=== PATIENT | female | born 1950 | race African-American/Black ===

== ENCOUNTER 2019-09-02 03:13 | Inpatient (IN) | payer MEDICARE ==
[2019-09-02] MEDS ORDERED: PROPOFOL 1,000 MG/100 ML INFUS..BTL IV PRN (03:18)
[2019-09-02 03:49] LABS: ARTERIAL BLOOD BASE EXCESS -11.1 mmol/L; ARTERIAL BLOOD H2CO3 1.76 mmol/L (1.05-1.35); ARTERIAL BLOOD HCO3 18.7 mmol/L (20-24); ARTERIAL BLOOD O2 SATURATION 91.6 % (94-98); ARTERIAL BLOOD PCO2 58.6 mmHg (35-45); ARTERIAL BLOOD PO2 80.8 mmHg (80-100); ARTERIAL BLOOD TOTAL CO2 20.5 mmol/L (21-25)
[2019-09-02 03:53] LABS: ARTERIAL BLOOD FIO2 60%; ARTERIAL BLOOD PH 7.12 (7.35-7.45)
[2019-09-02 03:59] LABS: INTERNATIONAL RATION (INR) 1.07
[2019-09-02 04:09] LABS: ABSOLUTE EOSINOPHILS # (AUTO) 0.2 10^3/uL (0.0-0.6); ABSOLUTE MONOCYTES (AUTO) 0.5 10^3/uL (0.1-1.4); ABSOLUTE NEUT (AUTO) 8.9 10^3/uL (1.7-8.2); BASOPHILS % (AUTO) 0.4 % (0-2); EOSINOPHILS % (AUTO) 1.2 % (0-6); HEMATOCRIT 38.2 % (36.0-47.0); HEMOGLOBIN 12.5 g/dL (12.0-15.5); LYMPHOCYTES % (AUTO) 23.9 % (13-45); MEAN CORPUSCULAR HEMOGLOBIN 26.9 pg (27.0-33.4); MEAN CORPUSCULAR HGB CONC 32.7 g/dL (32.0-36.0); MEAN CORPUSCULAR VOLUME 82 fl (80-97); MONOCYTES % (AUTO) 3.8 % (3-13); PLATELET COUNT 212 10^3/uL (150-450); RED BLOOD COUNT 4.64 10^6/uL (3.72-5.28); RED CELL DISTRIBUTION WIDTH 17.5 % (11.5-14.0); SEGMENTED NEUTROPHILS % (AUTO) 70.7 % (42-78); TOTAL CELLS COUNTED % (AUTO) 100 %; WHITE BLOOD COUNT 12.6 10^3/uL (4.0-10.5)
--- NOTE | 2019-09-02 04:09 | ER Document Report ---
Entered by NANCY AGARWAL SCRIBE 09/02/19 0321 Acting as scribe for:JACINTO GAINES IV, MD ED Respiratory Problem - General Stated Complaint: UNRESPONSIVE Mode of Arrival: Medic Information source: Emergency Med Personnel Notes: This 68 year old female patient brought in by EMS presents to the ED today with complaints of respiratory arrest and unresponsiveness. EMS reports that they found the patient on the front porch "huffing and puffing" and diaphoretic with clammy skin. EMS states that once they got the patient into the truck, she may have reported a history of COPD and asthma, but note that they couldn't get a clear history due to her dyspnea. They state that she quickly became altered and then went into respiratory failure. They report initially trying to administer a nebulizer treatment with no improvement in respiratory status so they placed her on CPAP. Patient was eventually intubated infield with a 6.5 ETT tube placed at 23 cm at the teeth, O2 sats 100% with bagging. - Related Data Allergies/Adverse Reactions: Unable to Assess Allergy (Verified 09/02/19 04:55) Past Medical History - General Cannot obtain history due to: Intubated - Social History Smoking Status: Unknown if Ever Smoked Family History: Reviewed & Not Pertinent Review of Systems - Review of Systems -: Yes ROS unobtainable due to patient's medical condition Physical Exam - Vital signs Vitals: Pulse Ox 93 09/02/19 03:16 - General General appearance: Unresponsive, Other - Unresponsive to painful stimuli. Intubated - HEENT Head: Normocephalic, Atraumatic Eyes: Normal Pupils: PERRL - Respiratory Respiratory status: Other - Intubated Chest status: Nontender Breath sounds: Other - Clear breath sounds bilaterally with bagging; prolonged expiratory phase appreciated Chest palpation: Normal - Cardiovascular Rhythm: Regular Heart sounds: Normal auscultation Murmur: No Friction rub: No Gallop: None auscultated - Abdominal Inspection: Normal Distension: No distension Bowel sounds: Normal Tenderness: Nontender - Abdomen soft Organomegaly: No organomegaly - Back Back: Normal, Nontender - Extremities General upper extremity: Normal inspection General lower extremity: Normal inspection - Neurological Neuro grossly intact: Yes - Psychological Associated symptoms: Other - Unresponsive - Skin Skin Temperature: Warm Skin Moisture: Dry Skin Color: Normal Course - Vital Signs Vital signs: Temp Pulse Resp BP Pulse Ox 20 137/67 H 99 09/02/19 05:36 09/02/19 05:36 09/02/19 05:36 - Laboratory Result Diagrams: 09/02/19 03:05 09/02/19 03:05 Laboratory results interpreted by me: 09/02/19 09/02/19 09/02/19 03:05 03:05 03:05 WBC 12.6 H MCH 26.9 L RDW 17.5 H Absolute Neuts (auto) 8.9 H D-Dimer Carbonic Acid ABG pH ABG pCO2 ABG HCO3 ABG Total CO2 ABG O2 Saturation Chloride 110 H Carbon Dioxide 20 L BUN 22 H Creatinine 1.50 H Est GFR ( Amer) 42 L Est GFR (MDRD) Non-Af 35 L Glucose 215 H POC Glucose Lactic Acid Calcium 8.3 L Phosphorus Magnesium AST 90 H ALT 47 H C-Reactive Protein NT-Pro-B Natriuret Pep 3220 H 09/02/19 09/02/19 09/02/19 03:05 03:05 03:05 WBC MCH RDW Absolute Neuts (auto) D-Dimer 1.76 H Carbonic Acid ABG pH ABG pCO2 ABG HCO3 ABG Total CO2 ABG O2 Saturation Chloride Carbon Dioxide BUN Creatinine Est GFR ( Amer) Est GFR (MDRD) Non-Af Glucose POC Glucose Lactic Acid Calcium Phosphorus 8.3 H Magnesium 3.2 H AST ALT C-Reactive Protein 14.2 H NT-Pro-B Natriuret Pep 09/02/19 09/02/19 09/02/19 03:20 03:20 04:04 WBC MCH RDW Absolute Neuts (auto) D-Dimer Carbonic Acid 1.76 H ABG pH 7.12 L* ABG pCO2 58.6 H ABG HCO3 18.7 L ABG Total CO2 20.5 L ABG O2 Saturation 91.6 L Chloride Carbon Dioxide BUN Creatinine Est GFR ( Amer) Est GFR (MDRD) Non-Af Glucose POC Glucose 180 H Lactic Acid 3.2 H Calcium Phosphorus Magnesium AST ALT C-Reactive Protein NT-Pro-B Natriuret Pep - Diagnostic Test Radiology reviewed: Reports reviewed - EKG Interpretation by Me Additional EKG results interpreted by me: 09/02/19 04:29 EKG obtained on 09/02/2019 at 0417 hrs. was interpreted by this MD. Findings: No rmal sinus rhythm, normal axis, P waves proceed QRS complexes, QRS complexes appear narrow, there are occasional PVCs. QTC is 491, there are no obvious ST segment patterns of elevation or depression to suggest acute myocardial ischemia or infarction. Impression normal sinus rhythm with prolonged QT interval and nonspecific ST segments. - Consults CRISTOPHER QUISPE NP, PRODUCT CONTROL AND LOGISTICS ANALYST Time consulted: 05:07 Reason for consultation: 09/02/19 05:07 Respiratory failure, intubated Consulted provider: will see as inpatient Critical Care Note - Critical Care Note Total time excluding time spent on procedures (mins): 60 Discharge - Discharge Clinical Impression: Respiratory failure Qualifiers: Chronicity: unspecified Respiratory failure complication: hypoxia and hypercapnia Qualified Code(s): J96.91 - Respiratory failure, unspecified with hypoxia Condition: Critical Disposition: ADMITTED INPATIENT Admitting Provider: Gonsalo (Swing Driver) Unit Admitted: ICU I personally performed the services described in the documentation, reviewed and edited the documentation which was dictated to the scribe in my presence, and it accurately records my words and actions.
[2019-09-02 04:15] LABS: ALBUMIN 3.7 g/dL (3.5-5.0); ALKALINE PHOSPHATASE 86 U/L (38-126); ANION GAP 12 (5-19); ASPARTATE AMINO TRANSFERASE 90 U/L (14-36); BILIRUBIN,TOTAL 0.2 mg/dL (0.2-1.3); BLOOD UREA NITROGEN 22 mg/dL (7-20); CALCIUM 8.3 mg/dL (8.4-10.2); CARBON DIOXIDE 20 mmol/L (22-30); CHLORIDE 110 mmol/L (98-107); GLUCOSE 215 mg/dL (75-110); POTASSIUM 3.9 mmol/L (3.6-5.0); TOTAL PROTEIN 6.4 g/dL (6.3-8.2)
--- NOTE | 2019-09-02 04:16 | RADIOLOGY REPORT (SQ) ---
EXAM DESCRIPTION: X-ray single view chest. CLINICAL HISTORY: 68 years Female, respiratory failure, intubated COMPARISON: None. TECHNIQUE: Single portable x-ray view of the chest performed on 09/02/2019 at 3:34 AM FINDINGS: The lungs are well expanded. There is mild patchy perihilar airspace disease with volume loss in the right lung base which may be due to a pleural effusion and/or atelectasis. There is no evidence of a pneumothorax. The cardiac silhouette is mildly prominent. The mediastinal contours are normal. No acute osseous abnormality is identified. No focal soft tissue abnormalities are seen. Lines and tubes: The endotracheal tube terminates below the clavicular heads and above the seble. The feeding tube extends below the diaphragm and courses along the left hemiabdomen. The tip is not visualized on this examination. IMPRESSION: 1. Mild patchy perihilar airspace disease with volume loss in the right lung base. Findings may be secondary to vascular congestion and right pleural effusion and/or atelectasis. Underlying pneumonia is not excluded. 2. Mild prominence of the cardiac silhouette. 3. Endotracheal tube and feeding tube present as described above.
[2019-09-02] MEDS ORDERED: RINGERS LACTATED IV ONE (04:26)
[2019-09-02] MEDS ORDERED: DEXTROSE 40% GEL 15 GM TUBE PO PRN ×2 (05:12)
[2019-09-02] MEDS ORDERED: DEXTROSE 50%-WATER 25 GM/50 ML DISP.SYRIN IV PRN ×2 (05:12)
[2019-09-02] MEDS ORDERED: GLUCAGON,HUMAN RECOMB 1 MG INJ IM PRN (05:12)
[2019-09-02 05:32] LABS: PHOSPHORUS 8.3 mg/dL (2.5-4.5)
[2019-09-02 05:36] LABS: C-REACTIVE PROTEIN 14.2 mg/L (<10.0)
[2019-09-02 06:08] LABS: FERRITIN 59.7 ng/mL (11.1-264.0)
[2019-09-02 06:16] LABS: A TYPE INFLUENZA AG NEGATIVE (NEGATIVE); B INFLUENZA AG NEGATIVE (NEGATIVE)
--- NOTE | 2019-09-02 06:24 | EKG REPORT ---
SEVERITY:- ABNORMAL ECG - SINUS RHYTHM VENTRICULAR PREMATURE COMPLEX BORDERLINE T ABNORMALITIES, LATERAL LEADS BORDERLINE PROLONGED QT INTERVAL : Confirmed by: Kyle Agee MD 02-Sep-2019 06:23:37
[2019-09-02] MEDS ORDERED: LORAZEPAM INJ 2 MG/1 ML VIAL IV ONE (06:28)
[2019-09-02] MEDS ORDERED: HYDROMORPHONE HCL INJ/PF 2 MG/ML AMPULE IV ONE (06:28)
[2019-09-02] MEDS: HEPARIN SOD (PORCINE) 5,000 UNIT/ML 1 ML VIAL SUBCUT SCH ×3 (07:13→21:08)
[2019-09-02] MEDS: INSULIN REG, HUMAN 100 UNIT/ML 3 ML VIAL (PYX) SUBCUT SCH ×3 (07:13→17:39)
[2019-09-02] MEDS: RINGERS SOLUTION,LACTATED 1,000 ML IV PRN ×2 (07:14→15:14)
[2019-09-02 07:21] LABS: ARTERIAL BLOOD BASE EXCESS -5.6 mmol/L; ARTERIAL BLOOD H2CO3 1.46 mmol/L (1.05-1.35); ARTERIAL BLOOD HCO3 21.5 mmol/L (20-24); ARTERIAL BLOOD O2 SATURATION 92.8 % (94-98); ARTERIAL BLOOD PCO2 48.5 mmHg (35-45); ARTERIAL BLOOD PH 7.27 (7.35-7.45); ARTERIAL BLOOD PO2 74.4 mmHg (80-100)
[2019-09-02 07:23] LABS: ARTERIAL BLOOD FIO2 60%
[2019-09-02 07:41] LABS: APPEARANCE,URINE SLIGHTLY-CLOUDY; BILIRUBIN,URINE NEGATIVE (NEGATIVE); COLOR,URINE YELLOW; GLUCOSE, URINE 50 mg/dL (NEGATIVE); KETONES,URINE NEGATIVE (NEGATIVE); LEUKOCYTE ESTERASE,URINE NEGATIVE (NEGATIVE); NITRITE,URINE POSITIVE (NEGATIVE); PROTEIN,URINE 100 mg/dL (NEGATIVE); URINE SPECIFIC GRAVITY 1.015; UROBILINOGEN,URINE NEGATIVE mg/dL (<2.0)
[2019-09-02] MEDS: IPRATROPIUM/ALBUTEROL 0.5-2.5 MG/3 ML AMPUL NEB SCH ×3 (09:02→20:06)
[2019-09-02] MEDS: FAMOTIDINE INJ/PF 20 MG/2 ML SDV IV SCH ×2 (10:20→21:08)
[2019-09-02] MEDS: PROPOFOL 1,000 MG/100 ML INFUS..BTL IV PRN ×2 (10:49→20:23)
[2019-09-02] MEDS: METHYLPREDNISOLONE INJ 40 MG/1 ML SDV IV SCH ×2 (11:18→20:23)
[2019-09-02] MEDS: METOPROLOL SUCCINATE 25 MG TAB.SR.24H PO SCH ×2 (13:29→21:09)
[2019-09-02] MEDS: AMLODIPINE BESYLATE 10 MG TABLET PO SCH (13:29)
--- NOTE | 2019-09-02 15:03 | PDOC CRITICAL CARE PROG REPORT ---
General Date:: 09/02/19 ICU Day:: 1 Ventilator Day:: 1 Hospital Day:: 1 Resuscitation Status: Full Code Reason for ICU Addmission:: Acute respiratory failure due to hypercapnia and hypoxia - Medications: Medications reviewed and adjusted accordingly: Yes Sedation:: Propofol for RASS -2 Physical Exam Vital Signs: Temp Pulse Resp BP Pulse Ox 98.4 F 66 20 196/81 H 98 09/02/19 14:00 09/02/19 14:25 09/02/19 14:25 09/02/19 13:59 09/02/19 14:25 Intake & Output 09/01/19 09/02/19 09/03/19 06:59 06:59 06:59 Intake Total 26 Output Total 160 Balance 26 -160 Weight 95.7 kg 97.5 kg Weight/Height Weight 97.5 kg Height 5 ft 7 in General appearance: PRESENT: severe distress, other - Intubated and sedated Head exam: PRESENT: atraumatic Eye exam: PRESENT: PERRLA Respiratory exam: PRESENT: rhonchi - Diffuse Cardiovascular exam: PRESENT: RRR, +S1, +S2 Pulses: PRESENT: normal radial pulses, normal dorsalis pedis pul GI/Abdominal exam: PRESENT: distended, normal bowel sounds, soft Rectal exam: PRESENT: deferred Extremities exam: PRESENT: pedal edema, +2 edema Neurological exam: PRESENT: other - Sedated Tubes/Lines: PRESENT: Endotracheal Tube, Other - OG Tube Laboratory/Radiographs Laboratory Results: 09/02/19 03:05 09/02/19 03:05 09/02/19 09/02/19 09/02/19 03:05 03:05 03:05 WBC 12.6 H RBC 4.64 Hgb 12.5 Hct 38.2 MCV 82 MCH 26.9 L MCHC 32.7 RDW 17.5 H Plt Count 212 Seg Neutrophils % 70.7 Carbonic Acid HCO3/H2CO3 Ratio ABG pH ABG pCO2 ABG pO2 ABG HCO3 ABG O2 Saturation ABG Base Excess FiO2 Sodium 141.7 Potassium 3.9 Chloride 110 H Carbon Dioxide 20 L Anion Gap 12 BUN 22 H Creatinine 1.50 H Est GFR ( Amer) 42 L Glucose 215 H Lactic Acid Calcium 8.3 L Phosphorus 8.3 H Magnesium 3.2 H Ferritin Total Bilirubin 0.2 AST 90 H Alkaline Phosphatase 86 C-Reactive Protein Total Protein 6.4 Albumin 3.7 Triglycerides Urine Color Urine Appearance Urine pH Ur Specific [place] Urine Protein Urine Glucose (UA) Urine Ketones Urine Blood Urine Nitrite Ur Leukocyte Esterase Urine WBC (Auto) Urine RBC (Auto) 09/02/19 09/02/19 09/02/19 03:05 03:05 03:20 WBC RBC Hgb Hct MCV MCH MCHC RDW Plt Count Seg Neutrophils % Carbonic Acid 1.76 H HCO3/H2CO3 Ratio 10:1 ABG pH 7.12 L* ABG pCO2 58.6 H ABG pO2 80.8 ABG HCO3 18.7 L ABG O2 Saturation 91.6 L ABG Base Excess -11.1 FiO2 60% Sodium Potassium Chloride Carbon Dioxide Anion Gap BUN Creatinine Est GFR ( Amer) Glucose Lactic Acid Calcium Phosphorus Magnesium Ferritin 59.70 Total Bilirubin AST Alkaline Phosphatase C-Reactive Protein 14.2 H Total Protein Albumin Triglycerides 200 H Urine Color Urine Appearance Urine pH Ur Specific [place] Urine Protein Urine Glucose (UA) Urine Ketones Urine Blood Urine Nitrite Ur Leukocyte Esterase Urine WBC (Auto) Urine RBC (Auto) 09/02/19 09/02/19 09/02/19 03:20 05:08 05:08 WBC RBC Hgb Hct MCV MCH MCHC RDW Plt Count Seg Neutrophils % Carbonic Acid 1.46 H HCO3/H2CO3 Ratio 14:1 ABG pH 7.27 L ABG pCO2 48.5 H ABG pO2 74.4 L ABG HCO3 21.5 ABG O2 Saturation 92.8 L ABG Base Excess -5.6 FiO2 60% Sodium Potassium Chloride Carbon Dioxide Anion Gap BUN Creatinine Est GFR ( Amer) Glucose Lactic Acid 3.2 H Calcium Phosphorus Magnesium Ferritin Total Bilirubin AST Alkaline Phosphatase C-Reactive Protein Total Protein Albumin Triglycerides Urine Color YELLOW Urine Appearance SLIGHTLY-CLOUDY Urine pH 5.0 Ur Specific [place] 1.015 Urine Protein 100 H Urine Glucose (UA) 50 H Urine Ketones NEGATIVE Urine Blood MODERATE H Urine Nitrite POSITIVE H Ur Leukocyte Esterase NEGATIVE Urine WBC (Auto) 23 Urine RBC (Auto) 14 09/02/19 09/02/19 03:05 03:05 Troponin I 0.032 NT-Pro-B Natriuret Pep 3220 H Impressions: Chest X-Ray 09/02/19 03:25 IMPRESSION: 1. Mild patchy perihilar airspace disease with volume loss in the right lung base. Findings may be secondary to vascular congestion and right pleural effusion and/or atelectasis. Underlying pneumonia is not excluded. 2. Mild prominence of the cardiac silhouette. 3. Endotracheal tube and feeding tube present as described above. All labs, radiographs, diagnostic studies and EKGs were personally reviewed: Yes In addition, reports of radiographic and diagnostic studies were read: Yes Assessment and Plan - Diagnosis (1) COPD exacerbation Is this a current diagnosis for this admission?: Yes Plan: Continue Solu medrol 40 mg IV Q8 hrs Continue Duonebs Q 6 hrs (2) Elevated lactic acid level Is this a current diagnosis for this admission?: Yes Plan: Continue IVF Repeat Lactate now and continue to monitor (3) HTN (hypertension) Qualifiers: Hypertension type: essential hypertension Qualified Code(s): I10 - Essential (primary) hypertension Is this a current diagnosis for this admission?: Yes Plan: Continue Amlodipine and Metoprolol (4) Hyperglycemia Is this a current diagnosis for this admission?: Yes Plan: Accucheck Q6hrs Continue sliding scale insulin (5) Leukocytosis Qualifiers: Leukocytosis type: unspecified Qualified Code(s): D72.829 - Elevated white blood cell count, unspecified Is this a current diagnosis for this admission?: Yes Plan: Most likely steroid induced as patient had no leukocytosis on presentation to the ER, will continue to monitor (6) Metabolic acidosis with respiratory acidosis Is this a current diagnosis for this admission?: Yes Plan: Continue mechanical ventilation Recheck ABG now (7) Respiratory failure with hypoxia and hypercapnia Qualifiers: Chronicity: acute Qualified Code(s): J96.01 - Acute respiratory failure with hypoxia; J96.02 - Acute respiratory failure with hypercapnia Is this a current diagnosis for this admission?: Yes Plan: Continue mechanical ventilation at current settings and repeat ABG now Critical Time Critical Time (minutes): 35 Level of Care: ICU -: 1. The care of a critical patient is a dynamic process. This note is a branch sales and service representative synopsis but static in nature. The timeframe for treatments given in order is not necessarily the actual time these treatments may have been done. 2. This patient requires critical care secondary to ongoing requirements for therapy not offered or safe outside the critical care environment. Transfer to a lower level of care will result in altered life or limb morbidity and mortality. 3. Multidisciplinary rounds completed. 4. ABCDE bundle addressed.
[2019-09-02 15:48] LABS: ARTERIAL BLOOD BASE EXCESS -5.9 mmol/L; ARTERIAL BLOOD H2CO3 1.36 mmol/L (1.05-1.35); ARTERIAL BLOOD HCO3 20.8 mmol/L (20-24); ARTERIAL BLOOD O2 SATURATION 97.9 % (94-98); ARTERIAL BLOOD PCO2 45.1 mmHg (35-45); ARTERIAL BLOOD PH 7.28 (7.35-7.45); ARTERIAL BLOOD PO2 120.4 mmHg (80-100); ARTERIAL BLOOD TOTAL CO2 22.1 mmol/L (21-25)
[2019-09-02 15:49] LABS: ARTERIAL BLOOD FIO2 93
[2019-09-03] MEDS: RINGERS SOLUTION,LACTATED 1,000 ML IV PRN ×2 (00:07→14:30)
[2019-09-03] MEDS: PROPOFOL 1,000 MG/100 ML INFUS..BTL IV PRN ×4 (00:07→11:58)
[2019-09-03] MEDS: INSULIN REG, HUMAN 100 UNIT/ML 3 ML VIAL (PYX) SUBCUT SCH ×4 (00:16→18:11)
[2019-09-03] MEDS: IPRATROPIUM/ALBUTEROL 0.5-2.5 MG/3 ML AMPUL NEB SCH ×4 (02:20→20:06)
[2019-09-03] MEDS: METHYLPREDNISOLONE INJ 40 MG/1 ML SDV IV SCH ×3 (03:09→21:35)
[2019-09-03 03:11] LABS: ABSOLUTE LYMPHOCYTES (AUTO) 0.5 10^3/uL (0.5-4.7); ABSOLUTE MONOCYTES (AUTO) 0.3 10^3/uL (0.1-1.4); ABSOLUTE NEUT (AUTO) 8.6 10^3/uL (1.7-8.2); BASOPHILS % (AUTO) 0.2 % (0-2); HEMATOCRIT 33.3 % (36.0-47.0); HEMOGLOBIN 11.6 g/dL (12.0-15.5); LYMPHOCYTES % (AUTO) 5.7 % (13-45); MEAN CORPUSCULAR HEMOGLOBIN 27.5 pg (27.0-33.4); MEAN CORPUSCULAR HGB CONC 34.8 g/dL (32.0-36.0); MEAN CORPUSCULAR VOLUME 79 fl (80-97); MONOCYTES % (AUTO) 3.4 % (3-13); PLATELET COUNT 189 10^3/uL (150-450); RED BLOOD COUNT 4.22 10^6/uL (3.72-5.28); RED CELL DISTRIBUTION WIDTH 17.1 % (11.5-14.0); SEGMENTED NEUTROPHILS % (AUTO) 90.7 % (42-78); TOTAL CELLS COUNTED % (AUTO) 100 %; WHITE BLOOD COUNT 9.5 10^3/uL (4.0-10.5)
[2019-09-03 03:28] LABS: ANION GAP 7 (5-19); BLOOD UREA NITROGEN 25 mg/dL (7-20); CALCIUM 8.5 mg/dL (8.4-10.2); CARBON DIOXIDE 20 mmol/L (22-30); CHLORIDE 108 mmol/L (98-107); GLUCOSE 146 mg/dL (75-110); POTASSIUM 4.6 mmol/L (3.6-5.0)
[2019-09-03 03:42] LABS: PHOSPHORUS 4.1 mg/dL (2.5-4.5)
--- NOTE | 2019-09-03 04:37 | CRITICAL CARE ADMISSION REPORT ---
HPI Date:: 09/02/19 Time:: 05:46 Reason for ICU Reason:: Acute respiratory failure due to hypercapnia and hypoxia HPI: Genevieve Duarte is a 68 year-old female with obstructive lung disease who reportedly called EMS for SOB and met EMS on the front porch while "huffing and puffing." She was noted by EMS to be diaphoretic and clammy. It is unclear whether the patient has COPD or asthma due to patient's severe conversational dyspnea and rapid decline per EMS. She received a breathing treatment, Solu-medrol, Magnesium sulfate, and an attempt of CPAP before becoming unresponsive for which she was intubated in the field with a size 6.5 endotracheal tube. She was then transported to [facility]. Her ETCO2 per EMS was >80 and on the ABG in the ED is 59, pH 7.12. It is also documented that her SPO2 was ~85% prior to arrival. CXR with no overt infiltrate/congestion and RLL may be a small pleural effusion vs a rib at the costophrenic angle. Notable labs are a mild lactatemia of 3.2, mild leukocytosis 12.6, and elevated serum creatinine 1.50. Troponin normal with no evidence of cardiac ischemia/infarction on EKG. ICU consulted for ventilator management. Patient to be admitted to ICU for respiratory failure due to hypercapnia and hypoxia, likely COPD exacerbation. History obtained from:: medical record, ER physician - Diagnosis/Plan (1) Respiratory failure with hypoxia and hypercapnia Qualifiers: Chronicity: acute Qualified Code(s): J96.01 - Acute respiratory failure with hypoxia; J96.02 - Acute respiratory failure with hypercapnia Is this a current diagnosis for this admission?: Yes Plan: Increase minute ventilation to compensate for mixed acidemia. Repeat ABG 06:30 AM. Support with mechanical ventilator. Will evaluate for SBT later today once condition has improved. To note, patient has been swabbed for COVID-19 in the ED. Follow up results. (2) Encounter for weaning from ventilator Is this a current diagnosis for this admission?: Yes Plan: see above (3) COPD exacerbation Is this a current diagnosis for this admission?: Yes Plan: Schedule Duo-nebs q6h. Start Solu-medrol 40 mg q8h. May need empiric Abx. No significant infiltrate on CXR, though there can be radiographic delay in plain film presentation. (4) Metabolic acidosis with respiratory acidosis Is this a current diagnosis for this admission?: Yes Plan: Hydrate, increase RR on ventilator and expect acidemia will resolve. (5) Leukocytosis Qualifiers: Leukocytosis type: unspecified Qualified Code(s): D72.829 - Elevated white blood cell count, unspecified Is this a current diagnosis for this admission?: Yes Plan: Received empiric Abx in ED, also received steroids en route to hospital. Will discuss continuous empiric Abx with Dr Brush. Check UA and sputum GS with C&S to ensure no infection. Follow up blood Cx's. (6) Elevated lactic acid level Is this a current diagnosis for this admission?: Yes Plan: Repeat lactate after hydration, anticipate will normalize. Pt likely dry due to insensible losses from progressive respiratory failure. (7) HTN (hypertension) Qualifiers: Hypertension type: essential hypertension Qualified Code(s): I10 - Essential (primary) hypertension Is this a current diagnosis for this admission?: Yes Plan: Suspect baseline chronic essential HTN If remains elevated despite sedation, will treat pain +/- add prn anti-HTN meds (8) Hyperglycemia Is this a current diagnosis for this admission?: Yes Plan: start ISS check HgbA1c in AM Past Medical History Medical History: Other - unable to obtain due to recent intubation/sedation Pulmonary Medical History: Reports: Asthma, Chronic Obstructive Pulmonary Disease (COPD) Past Surgical History Past Surgical History: unable to obtain due to recent intubation/sedation Social/Family History - Social History Social History Note: Unable to assess due to intubation/sedation. Smoking Status: Unknown if Ever Smoked - Medication/Allergies Home Medications: Unobtainable 09/02/19 Allergies/Adverse Reactions: Unable to Assess Allergy (Verified 09/02/19 04:55) Review of Systems ROS unobtainable: Due to endotracheal tube, Due to mental status Physical Exam Vital Signs: Temp Pulse Resp BP Pulse Ox 20 137/67 H 99 09/02/19 05:36 09/02/19 05:36 09/02/19 05:36 Intake & Output 08/31/19 09/01/19 09/02/19 06:59 06:59 06:59 Intake Total 6 Balance 6 Weight 95.7 kg Weight/Height Weight 95.7 kg Height 5 ft 7 in General appearance: PRESENT: no acute distress, morbidly obese, well-nourished Head exam: PRESENT: atraumatic, normocephalic Eye exam: PRESENT: conjunctiva pink, PERRLA. ABSENT: scleral icterus Ear exam: PRESENT: normal external ear exam Mouth exam: PRESENT: moist, neck supple, tongue midline Neck exam: PRESENT: full ROM. ABSENT: JVD, lymphadenopathy, tracheal deviation Respiratory exam: PRESENT: symmetrical, other - Lung sounds not auscultated secondary to the confines of PPE and poor auditory capability of disposable stethoscope.. ABSENT: accessory muscle use Cardiovascular exam: PRESENT: RRR, other - Cardiac sounds not auscultated secondary to the confines of PPE and poor auditory capability of disposable stethoscope. Pulses: PRESENT: normal radial pulses, +2 pedal pulses bilateral Vascular exam: PRESENT: normal capillary refill GI/Abdominal exam: PRESENT: soft, other - Bowel sounds not auscultated secondary to the confines of PPE and poor auditory capability of disposable stethoscope.. ABSENT: distended, tenderness Rectal exam: PRESENT: deferred Gentrourinary exam: PRESENT: indwelling catheter Extremities exam: ABSENT: joint swelling, pedal edema Musculoskeletal exam: PRESENT: full ROM. ABSENT: deformity Neurological exam: PRESENT: other - intubated/sedated Skin exam: PRESENT: dry, warm. ABSENT: jaundice Tubes/Lines: PRESENT: Endotracheal Tube Laboratory/Radiographs Laboratory Results: 09/02/19 03:05 09/02/19 03:05 09/02/19 09/02/19 09/02/19 03:05 03:05 03:05 WBC 12.6 H RBC 4.64 Hgb 12.5 Hct 38.2 MCV 82 MCH 26.9 L MCHC 32.7 RDW 17.5 H Plt Count 212 Seg Neutrophils % 70.7 Carbonic Acid HCO3/H2CO3 Ratio ABG pH ABG pCO2 ABG pO2 ABG HCO3 ABG O2 Saturation ABG Base Excess FiO2 Sodium 141.7 Potassium 3.9 Chloride 110 H Carbon Dioxide 20 L Anion Gap 12 BUN 22 H Creatinine 1.50 H Est GFR ( Amer) 42 L Glucose 215 H Lactic Acid Calcium 8.3 L Phosphorus 8.3 H Magnesium 3.2 H Total Bilirubin 0.2 AST 90 H Alkaline Phosphatase 86 Total Protein 6.4 Albumin 3.7 09/02/19 09/02/19 03:20 03:20 WBC RBC Hgb Hct MCV MCH MCHC RDW Plt Count Seg Neutrophils % Carbonic Acid 1.76 H HCO3/H2CO3 Ratio 10:1 ABG pH 7.12 L* ABG pCO2 58.6 H ABG pO2 80.8 ABG HCO3 18.7 L ABG O2 Saturation 91.6 L ABG Base Excess -11.1 FiO2 60% Sodium Potassium Chloride Carbon Dioxide Anion Gap BUN Creatinine Est GFR ( Amer) Glucose Lactic Acid 3.2 H Calcium Phosphorus Magnesium Total Bilirubin AST Alkaline Phosphatase Total Protein Albumin 09/02/19 09/02/19 03:05 03:05 Troponin I 0.032 NT-Pro-B Natriuret Pep 3220 H Impressions: Chest X-Ray 09/02/19 03:25 IMPRESSION: 1. Mild patchy perihilar airspace disease with volume loss in the right lung base. Findings may be secondary to vascular congestion and right pleural effusion and/or atelectasis. Underlying pneumonia is not excluded. 2. Mild prominence of the cardiac silhouette. 3. Endotracheal tube and feeding tube present as described above. EKG: NSR with a PVC, no evidence of cardiac ischemia/infarction, QTc prolonged 491 ms All labs, radiographs, diagnostic studies and EKGs were personally reviewed: Yes In addition, reports of radiographic and diagnostic studies were read: Yes Critical Time Critical Time (minutes): 60 -: The care of a critically ill patient is dynamic. This note represents a static moment in the admission process. Orders and treatments may be given simultaneously and urgently, and time is not utility sales representative of the treatment process. This patient requires Critical Care secondary to life threatening organ or limb dysfunction. Without Critical Care services, the patient is at risk for increased mortality and morbidity.
[2019-09-03] MEDS: HEPARIN SOD (PORCINE) 5,000 UNIT/ML 1 ML VIAL SUBCUT SCH ×3 (05:18→21:42)
[2019-09-03 05:48] LABS: ARTERIAL BLOOD BASE EXCESS -6.6 mmol/L; ARTERIAL BLOOD H2CO3 0.96 mmol/L (1.05-1.35); ARTERIAL BLOOD HCO3 17.7 mmol/L (20-24); ARTERIAL BLOOD PCO2 31.8 mmHg (35-45); ARTERIAL BLOOD PH 7.36 (7.35-7.45); ARTERIAL BLOOD TOTAL CO2 18.7 mmol/L (21-25)
[2019-09-03 05:51] LABS: ARTERIAL BLOOD FIO2 60%
[2019-09-03] MEDS ORDERED: RINGERS SOLUTION,LACTATED 500 ML IV ONE (06:13)
[2019-09-03] MEDS: AMLODIPINE BESYLATE 10 MG TABLET PO SCH (10:43)
[2019-09-03] MEDS: FAMOTIDINE INJ/PF 20 MG/2 ML SDV IV SCH ×2 (10:43→21:37)
[2019-09-03] MEDS: METOPROLOL TARTRATE 25 MG TABLET PO SCH ×2 (10:43→21:33)
--- NOTE | 2019-09-03 11:11 | PDOC CRITICAL CARE PROG REPORT ---
General Date:: 09/03/19 ICU Day:: 2 Ventilator Day:: 2 Hospital Day:: 2 Resuscitation Status: Full Code Events in the past 12 to 24 Hours:: Weaning successfully. Review of systems relevant to events:: Respiratory Reason for ICU Addmission:: Acute respiratory failure due to hypercapnia and hypoxia - Medications: Medications reviewed and adjusted accordingly: Yes Vasopressors:: None Sedation:: Propofol Physical Exam Vital Signs: Temp Pulse Resp BP Pulse Ox 97.3 F 75 18 172/74 H 100 09/03/19 10:01 09/03/19 08:25 09/03/19 10:01 09/03/19 10:01 09/03/19 10:01 Intake & Output 09/02/19 09/03/19 09/04/19 06:59 06:59 06:59 Intake Total 26 2213 103 Output Total 750 195 Balance 26 1463 -92 Weight 95.7 kg 100.8 kg Weight/Height Weight 100.8 kg Height 5 ft 7 in General appearance: PRESENT: no acute distress Head exam: PRESENT: atraumatic, normocephalic Eye exam: PRESENT: conjunctiva pink, EOMI, PERRLA. ABSENT: scleral icterus Ear exam: PRESENT: normal external ear exam Mouth exam: PRESENT: moist, tongue midline Respiratory exam: PRESENT: chest wall tenderness, decreased breath sounds, symmetrical, unlabored Cardiovascular exam: PRESENT: RRR. ABSENT: diastolic murmur, rubs, systolic murmur Vascular exam: PRESENT: normal capillary refill GI/Abdominal exam: PRESENT: normal bowel sounds, soft. ABSENT: distended, gua rding, mass, organolmegaly, rebound, tenderness Rectal exam: PRESENT: deferred Extremities exam: PRESENT: full ROM. ABSENT: calf tenderness, clubbing, pedal edema Neurological exam: PRESENT: other - Sedated Psychiatric exam: PRESENT: anxious Skin exam: PRESENT: dry, intact, warm. ABSENT: cyanosis, rash Tubes/Lines: PRESENT: Endotracheal Tube, Nasogastic Tube Laboratory/Radiographs Laboratory Results: 09/03/19 03:03 09/03/19 03:03 09/02/19 09/02/19 09/02/19 03:05 15:31 16:32 WBC RBC Hgb Hct MCV MCH MCHC RDW Plt Count Seg Neutrophils % Carbonic Acid 1.36 H HCO3/H2CO3 Ratio 15:1 ABG pH 7.28 L ABG pCO2 45.1 H ABG pO2 120.4 H ABG HCO3 20.8 ABG O2 Saturation 97.9 ABG Base Excess -5.9 FiO2 93 Sodium Potassium Chloride Carbon Dioxide Anion Gap BUN Creatinine Est GFR ( Amer) Glucose Lactic Acid 3.2 H Calcium Phosphorus Magnesium Triglycerides 200 H 09/03/19 09/03/19 09/03/19 03:03 03:03 03:03 WBC 9.5 RBC 4.22 Hgb 11.6 L Hct 33.3 L MCV 79 L MCH 27.5 MCHC 34.8 RDW 17.1 H Plt Count 189 Seg Neutrophils % 90.7 H Carbonic Acid HCO3/H2CO3 Ratio ABG pH ABG pCO2 ABG pO2 ABG HCO3 ABG O2 Saturation ABG Base Excess FiO2 Sodium 135.4 L Potassium 4.6 Chloride 108 H Carbon Dioxide 20 L Anion Gap 7 BUN 25 H Creatinine 1.23 Est GFR ( Amer) 53 L Glucose 146 H Lactic Acid 2.9 H Calcium 8.5 Phosphorus Magnesium Triglycerides 09/03/19 09/03/19 03:03 05:34 WBC RBC Hgb Hct MCV MCH MCHC RDW Plt Count Seg Neutrophils % Carbonic Acid 0.96 L HCO3/H2CO3 Ratio 18:1 ABG pH 7.36 ABG pCO2 31.8 L ABG pO2 160.0 H ABG HCO3 17.7 L ABG O2 Saturation 99.0 H ABG Base Excess -6.6 FiO2 60% Sodium Potassium Chloride Carbon Dioxide Anion Gap BUN Creatinine Est GFR ( Amer) Glucose Lactic Acid Calcium Phosphorus 4.1 D Magnesium 2.3 Triglycerides 09/02/19 09/02/19 03:05 03:05 Troponin I 0.032 NT-Pro-B Natriuret Pep 3220 H Impressions: Chest X-Ray 09/02/19 03:25 IMPRESSION: 1. Mild patchy perihilar airspace disease with volume loss in the right lung base. Findings may be secondary to vascular congestion and right pleural effusion and/or atelectasis. Underlying pneumonia is not excluded. 2. Mild prominence of the cardiac silhouette. 3. Endotracheal tube and feeding tube present as described above. All labs, radiographs, diagnostic studies and EKGs were personally reviewed: Yes In addition, reports of radiographic and diagnostic studies were read: Yes Assessment and Plan - Diagnosis (1) COPD exacerbation Is this a current diagnosis for this admission?: Yes Plan: This is most likely why she is intubated. There is a lack of information of her past history and no family to fill in. We will have to extubate and explore this further. Continue steroids and nebulizers. (2) Elevated lactic acid level Is this a current diagnosis for this admission?: Yes Plan: Still elaveted but slowly coming down. (3) Encounter for weaning from ventilator Is this a current diagnosis for this admission?: Yes Plan: I do believe we can extubate today. (4) Metabolic acidosis with respiratory acidosis Is this a current diagnosis for this admission?: Yes Plan: Resolved. Plan Summary: Weaning and extubate today. Critical Time Critical Time (minutes): 35 Level of Care: ICU Anticipated discharge: Home Within: Other -: 1. The care of a critical patient is a dynamic process. This note is a high school admissions representative synopsis but static in nature. The timeframe for treatments given in order is not necessarily the actual time these treatments may have been done. 2. This patient requires critical care secondary to ongoing requirements for therapy not offered or safe outside the critical care environment. Transfer to a lower level of care will result in altered life or limb morbidity and mortality. 3. Multidisciplinary rounds completed. 4. ABCDE bundle addressed.
[2019-09-03] MEDS ORDERED: RACEPINEPHRINE HCL 2.25% NEB 0.5 ML AMPUL NEB ONE ×2 (14:46→14:48)
[2019-09-04] MEDS ORDERED: HYDRALAZINE HCL INJ/PF 20 MG/1 ML SDV ONE (01:00)
[2019-09-04] MEDS: IPRATROPIUM/ALBUTEROL 0.5-2.5 MG/3 ML AMPUL NEB SCH ×4 (01:05→20:34)
[2019-09-04] MEDS: INSULIN REG, HUMAN 100 UNIT/ML 3 ML VIAL (PYX) SUBCUT SCH ×4 (01:16→18:09)
[2019-09-04] MEDS ORDERED: RACEPINEPHRINE HCL 2.25% NEB 0.5 ML AMPUL NEB ONE ×2 (01:30→06:39)
[2019-09-04] MEDS ORDERED: HYDRALAZINE HCL INJ/PF 20 MG/1 ML SDV IV ONE ×2 (01:30→06:33)
[2019-09-04] MEDS: METHYLPREDNISOLONE INJ 40 MG/1 ML SDV IV SCH ×3 (04:34→21:22)
[2019-09-04] MEDS: HEPARIN SOD (PORCINE) 5,000 UNIT/ML 1 ML VIAL SUBCUT SCH ×3 (05:17→21:28)
[2019-09-04] MEDS: IPRATROPIUM/ALBUTEROL 0.5-2.5 MG/3 ML AMPUL NEB PRN (06:52)
[2019-09-04] MEDS: ETOMIDATE INJ/PF 20 MG/10 ML SDV IV ONE ×2 (07:04→08:18)
[2019-09-04] MEDS ORDERED: PROPOFOL 1,000 MG/100 ML INFUS..BTL IV ONE (07:06)
[2019-09-04] MEDS: PROPOFOL 1,000 MG/100 ML INFUS..BTL IV PRN ×6 (07:10→21:28)
--- NOTE | 2019-09-04 07:17 | Progress Note ---
Provider Note Provider Note: PT with stridor and increased WOB, diaphoretic racemic epi x 1 unsuccessful Intubated with # * ETT 25 at the teeth grade 3 view passed ETT through cords easily, confirmed with CO2 detector 1 attempt. Will get CXR to veify placement
--- NOTE | 2019-09-04 08:03 | RADIOLOGY REPORT (SQ) ---
EXAM: XR Chest, 1 View EXAM DATE/TIME: 09/04/2019 7:41 AM CLINICAL HISTORY: The patient is 68 years old and is Female; ETT placement TECHNIQUE: Frontal view of the chest. COMPARISON: Chest radiograph from 09/02/2019 FINDINGS: LUNGS: Slight ill-defined increased density in the right mid to lower lung and within the retrocardiac region on the left. Findings are slightly increased compared to the prior study. PLEURAL SPACE: Probable small right pleural effusion, similar to the prior exam. No pneumothorax. HEART: Stable mild enlargement of the cardiac silhouette. MEDIASTINUM: Unremarkable. BONES/JOINTS: The bones are unchanged. TUBES, LINES AND DEVICES: Endotracheal tube terminates approximately 3 cm above the seble. An enteric tube is in place, coursing into the stomach and terminating below the field of view. IMPRESSION: 1. Probable small right pleural effusion. 2. Slight ill-defined increased density in the right mid to lower lung and within the retrocardiac region on the left. This is slightly increased compared to the prior study and may represent areas of atelectasis or pneumonia.
[2019-09-04] MEDS ORDERED: ROCURONIUM BROMIDE INJ 50 MG/5 ML VIAL IV ONE (08:36)
[2019-09-04] MEDS: METOPROLOL TARTRATE 25 MG TABLET PO SCH ×2 (11:08→21:22)
[2019-09-04] MEDS: AMLODIPINE BESYLATE 10 MG TABLET PO SCH (11:08)
[2019-09-04] MEDS: FAMOTIDINE INJ/PF 20 MG/2 ML SDV IV SCH ×2 (11:16→21:22)
[2019-09-04] MEDS: LORAZEPAM INJ 2 MG/1 ML VIAL IV PRN (16:48)
[2019-09-05] MEDS: INSULIN REG, HUMAN 100 UNIT/ML 3 ML VIAL (PYX) SUBCUT SCH ×5 (00:26→23:22)
[2019-09-05] MEDS: PROPOFOL 1,000 MG/100 ML INFUS..BTL IV PRN ×6 (01:02→23:48)
[2019-09-05] MEDS: IPRATROPIUM/ALBUTEROL 0.5-2.5 MG/3 ML AMPUL NEB SCH ×4 (02:17→19:46)
[2019-09-05] MEDS: METHYLPREDNISOLONE INJ 40 MG/1 ML SDV IV SCH ×3 (04:35→19:54)
[2019-09-05 04:49] LABS: ANION GAP 6 (5-19); BLOOD UREA NITROGEN 37 mg/dL (7-20); CALCIUM 8.6 mg/dL (8.4-10.2); CARBON DIOXIDE 21 mmol/L (22-30); CHLORIDE 108 mmol/L (98-107); GLUCOSE 120 mg/dL (75-110); POTASSIUM 4.7 mmol/L (3.6-5.0); TRIGLYCERIDES 353 mg/dL (<150)
[2019-09-05] MEDS: HEPARIN SOD (PORCINE) 5,000 UNIT/ML 1 ML VIAL SUBCUT SCH ×3 (05:26→21:39)
[2019-09-05] MEDS: AMLODIPINE BESYLATE 10 MG TABLET PO SCH (09:04)
[2019-09-05] MEDS: METOPROLOL TARTRATE 25 MG TABLET PO SCH ×2 (09:04→21:35)
[2019-09-05] MEDS: FAMOTIDINE INJ/PF 20 MG/2 ML SDV IV SCH ×2 (09:04→21:31)
[2019-09-05] MEDS ORDERED: MEROPENEM 1 GM in NORMAL SALINE 50 ML IV SCH (11:30)
--- NOTE | 2019-09-05 11:43 | PDOC CRITICAL CARE PROG REPORT ---
General Date:: 09/05/19 ICU Day:: 3 Ventilator Day:: 3 Hospital Day:: 3 Resuscitation Status: Full Code Events in the past 12 to 24 Hours:: No cuff leak but she has #8 ETT. Try to keep her somewhat sedated and try to ext ubate today. Review of systems relevant to events:: Respiratory. Reason for ICU Addmission:: Acute respiratory failure due to hypercapnia and hypoxia. Intubated. - Medications: Medications reviewed and adjusted accordingly: Yes Vasopressors:: None Sedation:: Propofol Physical Exam Vital Signs: Temp Pulse Resp BP Pulse Ox 99.1 F 66 17 156/63 H 97 09/05/19 11:36 09/05/19 07:41 09/05/19 10:00 09/05/19 09:52 09/05/19 11:13 Intake & Output 09/04/19 09/05/19 09/06/19 06:59 06:59 06:59 Intake Total 1211 759 98 Output Total 1960 1710 195 Balance -749 -951 -97 Weight 99.7 kg 101.9 kg Weight/Height Weight 101.9 kg Height 5 ft 7 in General appearance: PRESENT: no acute distress Head exam: PRESENT: atraumatic, normocephalic Eye exam: PRESENT: conjunctiva pink, EOMI, PERRLA. ABSENT: scleral icterus Ear exam: PRESENT: normal external ear exam Mouth exam: PRESENT: moist, tongue midline Respiratory exam: PRESENT: clear to auscultation cecilia, wheezes - Occassional. ABSENT: rales, rhonchi Cardiovascular exam: PRESENT: RRR. ABSENT: diastolic murmur, rubs, systolic murmur Vascular exam: PRESENT: normal capillary refill GI/Abdominal exam: PRESENT: normal bowel sounds, soft. ABSENT: distended, guarding, mass, organolmegaly, rebound, tenderness Rectal exam: PRESENT: deferred Extremities exam: PRESENT: full ROM. ABSENT: calf tenderness, clubbing, pedal edema Neurological exam: PRESENT: other - Sedated Psychiatric exam: PRESENT: agitated - At times. Skin exam: PRESENT: dry, intact, warm. ABSENT: cyanosis, rash Tubes/Lines: PRESENT: Endotracheal Tube, Nasogastic Tube Laboratory/Radiographs Laboratory Results: 09/03/19 03:03 09/05/19 04:18 09/05/19 04:18 Sodium 135.2 L Potassium 4.7 Chloride 108 H Carbon Dioxide 21 L Anion Gap 6 BUN 37 H Creatinine 1.36 H Est GFR ( Amer) 47 L Glucose 120 H Calcium 8.6 Triglycerides 353 H 09/02/19 05:08 Tracheal Aspirate Gram Stain - Final 09/02/19 05:08 Tracheal Aspirate Sputum Culture - Final NORMAL SWEETIE 09/02/19 09/02/19 03:05 03:05 Troponin I 0.032 NT-Pro-B Natriuret Pep 3220 H Impressions: Chest X-Ray 09/04/19 00:00 IMPRESSION: 1. Probable small right pleural effusion. 2. Slight ill-defined increased density in the right mid to lower lung and within the retrocardiac region on the left. This is slightly increased compared to the prior study and may represent areas of atelectasis or pneumonia. All labs, radiographs, diagnostic studies and EKGs were personally reviewed: Yes In addition, reports of radiographic and diagnostic studies were read: Yes Assessment and Plan - Diagnosis (1) COPD exacerbation Is this a current diagnosis for this admission?: Yes Plan: Seems to be nearly resolved (2) Elevated lactic acid level Is this a current diagnosis for this admission?: Yes Plan: Resolved. (3) Encounter for weaning from ventilator Is this a current diagnosis for this admission?: Yes Plan: Actively weaning now (4) Metabolic acidosis with respiratory acidosis Is this a current diagnosis for this admission?: Yes Plan: Resolved. Plan Summary: Try to extubate today. Critical Time Critical Time (minutes): 35 Level of Care: ICU Anticipated discharge: Home with Homehealth Within: Other -: 1. The care of a critical patient is a dynamic process. This note is a u.s. representative synopsis but static in nature. The timeframe for treatments given in order is not necessarily the actual time these treatments may have been done. 2. This patient requires critical care secondary to ongoing requirements for therapy not offered or safe outside the critical care environment. Transfer to a lower level of care will result in altered life or limb morbidity and mortality. 3. Multidisciplinary rounds completed. 4. ABCDE bundle addressed.
--- NOTE | 2019-09-05 13:19 | Progress Note ---
Provider Note Provider Note: Despite albuterol, atrovent and steroids, she is still actively wheezing quite a bit and should not be extubated today.
[2019-09-05] MEDS: LORAZEPAM INJ 2 MG/1 ML VIAL IV PRN ×2 (18:06→21:29)
[2019-09-05] MEDS: RINGERS SOLUTION,LACTATED 1,000 ML IV PRN ×2 (18:06)
[2019-09-06] MEDS ORDERED: HYDRALAZINE HCL INJ/PF 20 MG/1 ML SDV IV ONE (00:30)
[2019-09-06] MEDS: IPRATROPIUM/ALBUTEROL 0.5-2.5 MG/3 ML AMPUL NEB SCH ×4 (02:06→20:41)
[2019-09-06] MEDS: METHYLPREDNISOLONE INJ 40 MG/1 ML SDV IV SCH ×3 (04:03→20:03)
[2019-09-06] MEDS: INSULIN REG, HUMAN 100 UNIT/ML 3 ML VIAL (PYX) SUBCUT SCH ×3 (05:29→18:07)
[2019-09-06] MEDS: PROPOFOL 1,000 MG/100 ML INFUS..BTL IV PRN (06:10)
[2019-09-06] MEDS: RINGERS SOLUTION,LACTATED 1,000 ML IV PRN ×2 (06:41→18:41)
[2019-09-06 06:49] LABS: HEMATOCRIT 34.5 % (36.0-47.0); HEMOGLOBIN 11.6 g/dL (12.0-15.5); MEAN CORPUSCULAR HEMOGLOBIN 26.7 pg (27.0-33.4); MEAN CORPUSCULAR HGB CONC 33.5 g/dL (32.0-36.0); MEAN CORPUSCULAR VOLUME 80 fl (80-97); PLATELET COUNT 159 10^3/uL (150-450); RED BLOOD COUNT 4.34 10^6/uL (3.72-5.28); RED CELL DISTRIBUTION WIDTH 17.1 % (11.5-14.0); WHITE BLOOD COUNT 10.5 10^3/uL (4.0-10.5)
[2019-09-06 07:18] LABS: ABSOLUTE LYMPHOCYTES# (MANUAL) 0.6 10^3/uL (0.5-4.7); BASOPHILS % (MANUAL) 0 % (0-2); EOSINOPHILS % (MANUAL) 0 % (0-6); LYMPHOCYTES % (MANUAL) 5 % (13-45); MONOCYTES % (MANUAL) 0 % (3-13); SEGMENTED NEUTROPHILS % (MAN) 94 % (42-78); TOTAL CELLS COUNTED 100
[2019-09-06 07:19] LABS: ANISOCYTOSIS 1+
[2019-09-06 07:22] LABS: HYPOCHROMASIA SLIGHT; PLATELET COMMENT ADEQUATE
[2019-09-06] MEDS: HEPARIN SOD (PORCINE) 5,000 UNIT/ML 1 ML VIAL SUBCUT SCH ×3 (07:32→21:27)
[2019-09-06] MEDS: AMLODIPINE BESYLATE 10 MG TABLET PO SCH (09:04)
[2019-09-06] MEDS: METOPROLOL TARTRATE 25 MG TABLET PO SCH (09:04)
[2019-09-06] MEDS: FAMOTIDINE INJ/PF 20 MG/2 ML SDV IV SCH (09:04)
--- NOTE | 2019-09-06 09:23 | PDOC CRITICAL CARE PROG REPORT ---
General Date:: 09/06/19 ICU Day:: 4 Ventilator Day:: 4 Hospital Day:: 4 Resuscitation Status: Full Code Events in the past 12 to 24 Hours:: Lungs sounds much better. Try extubation again. Review of systems relevant to events:: Respiratory Reason for ICU Addmission:: Acute respiratory failure due to hypercapnia and hypoxia. Intubated. - Medications: Medications reviewed and adjusted accordingly: Yes Vasopressors:: None Sedation:: Diprivan Physical Exam Vital Signs: Temp Pulse Resp BP Pulse Ox 99.1 F 60 14 186/98 H 98 09/05/19 18:00 09/06/19 07:58 09/06/19 07:58 09/05/19 17:53 09/06/19 07:58 Intake & Output 09/05/19 09/06/19 09/07/19 06:59 06:59 06:59 Intake Total 759 2726 Output Total 1710 1485 150 Balance -951 1241 -150 Weight 101.9 kg 101.5 kg Weight/Height Weight 101.5 kg Height 5 ft 7 in General appearance: PRESENT: no acute distress Head exam: PRESENT: atraumatic, normocephalic Eye exam: PRESENT: conjunctiva pink, EOMI, PERRLA. ABSENT: scleral icterus Ear exam: PRESENT: normal external ear exam Mouth exam: PRESENT: moist, tongue midline Respiratory exam: PRESENT: clear to auscultation cecilia, decreased breath sounds. ABSENT: rales, rhonchi, wheezes Cardiovascular exam: PRESENT: RRR. ABSENT: diastolic murmur, rubs, systolic murmur GI/Abdominal exam: PRESENT: normal bowel sounds, soft. ABSENT: distended, guarding, mass, organolmegaly, rebound, tenderness Rectal exam: PRESENT: deferred Extremities exam: PRESENT: full ROM. ABSENT: calf tenderness, clubbing, pedal edema Neurological exam: PRESENT: other - Sedated Skin exam: PRESENT: dry, intact, warm. ABSENT: cyanosis, rash Tubes/Lines: PRESENT: Endotracheal Tube, Nasogastic Tube Laboratory/Radiographs Laboratory Results: 09/06/19 06:15 09/05/19 04:18 09/06/19 06:15 WBC 10.5 RBC 4.34 Hgb 11.6 L Hct 34.5 L MCV 80 MCH 26.7 L MCHC 33.5 RDW 17.1 H Plt Count 159 Seg Neutrophils % Not Reportable 09/02/19 09/02/19 03:05 03:05 Troponin I 0.032 NT-Pro-B Natriuret Pep 3220 H Impressions: Chest X-Ray 09/04/19 00:00 IMPRESSION: 1. Probable small right pleural effusion. 2. Slight ill-defined increased density in the right mid to lower lung and within the retrocardiac region on the left. This is slightly increased compared to the prior study and may represent areas of atelectasis or pneumonia. All labs, radiographs, diagnostic studies and EKGs were personally reviewed: Yes In addition, reports of radiographic and diagnostic studies were read: Yes Assessment and Plan - Diagnosis (1) COPD exacerbation Is this a current diagnosis for this admission?: Yes Plan: Seems more stable today. No wheezing. (2) Elevated lactic acid level Is this a current diagnosis for this admission?: Yes Plan: Resolved (3) Encounter for weaning from ventilator Is this a current diagnosis for this admission?: Yes Plan: Tolerated weaning well. Extubate. (4) Metabolic acidosis with respiratory acidosis Is this a current diagnosis for this admission?: Yes Plan: Resolved. Plan Summary: Try extubation again today. Critical Time Critical Time (minutes): 35 Level of Care: ICU Anticipated discharge: Home with Homehealth Within: Other -: 1. The care of a critical patient is a dynamic process. This note is a marketing sales representative synopsis but static in nature. The timeframe for treatments given in order is not necessarily the actual time these treatments may have been done. 2. This patient requires critical care secondary to ongoing requirements for therapy not offered or safe outside the critical care environment. Transfer to a lower level of care will result in altered life or limb morbidity and mortality. 3. Multidisciplinary rounds completed. 4. ABCDE bundle addressed.
--- NOTE | 2019-09-06 10:55 | Progress Note ---
Provider Note Provider Note: Extubated and doing well so far.
[2019-09-06] MEDS: LISINOPRIL 10 MG TABLET PO SCH (16:42)
[2019-09-06] MEDS: IPRATROPIUM/ALBUTEROL 0.5-2.5 MG/3 ML AMPUL NEB PRN (18:18)
[2019-09-06] MEDS: HYDRALAZINE HCL INJ/PF 20 MG/1 ML SDV IV PRN ×2 (20:03→23:45)
[2019-09-06] MEDS: METOPROLOL TARTRATE 50 MG TABLET PO SCH (21:12)
[2019-09-06] MEDS ORDERED: METOPROLOL TARTRATE 25 MG TABLET PO SCH (22:00)
[2019-09-06] MEDS: LORAZEPAM INJ 2 MG/1 ML VIAL IV PRN (23:45)
[2019-09-07] MEDS ORDERED: ZIPRASIDONE MESYLATE INJ/PF 20 MG SDV IM ONE (01:15)
[2019-09-07] MEDS: IPRATROPIUM/ALBUTEROL 0.5-2.5 MG/3 ML AMPUL NEB SCH ×4 (02:42→20:13)
[2019-09-07] MEDS: METHYLPREDNISOLONE INJ 40 MG/1 ML SDV IV SCH (04:54)
[2019-09-07] MEDS: HEPARIN SOD (PORCINE) 5,000 UNIT/ML 1 ML VIAL SUBCUT SCH ×3 (05:00→21:12)
[2019-09-07 05:06] LABS: ANION GAP 8 (5-19); BLOOD UREA NITROGEN 39 mg/dL (7-20); CALCIUM 8.9 mg/dL (8.4-10.2); CARBON DIOXIDE 21 mmol/L (22-30); CHLORIDE 110 mmol/L (98-107); GLUCOSE 104 mg/dL (75-110); POTASSIUM 4.8 mmol/L (3.6-5.0)
--- NOTE | 2019-09-07 08:12 | PDOC CRITICAL CARE PROG REPORT ---
General Date:: 09/07/19 ICU Day:: 5 Hospital Day:: 5 Resuscitation Status: Full Code Events in the past 12 to 24 Hours:: Remains extubated and delirious. Review of systems relevant to events:: Pulmonary and neurological. Reason for ICU Addmission:: Extubated, delirious - Medications: Medications reviewed and adjusted accordingly: Yes Vasopressors:: None Sedation:: None Physical Exam Vital Signs: Temp Pulse Resp BP Pulse Ox 98.1 F 73 18 175/58 H 98 09/07/19 01:51 09/07/19 02:44 09/07/19 02:44 09/06/19 09:45 09/07/19 02:44 Intake & Output 09/06/19 09/07/19 09/08/19 06:59 06:59 06:59 Intake Total 2726 40 Output Total 1485 2585 Balance 1241 -2545 Weight 101.5 kg 96.8 kg Weight/Height Weight 96.8 kg Height 5 ft 7 in General appearance: PRESENT: no acute distress, obese Head exam: PRESENT: atraumatic, normocephalic Eye exam: PRESENT: conjunctiva pink, EOMI, PERRLA. ABSENT: scleral icterus Ear exam: PRESENT: normal external ear exam Mouth exam: PRESENT: moist, tongue midline Respiratory exam: PRESENT: decreased breath sounds, rhonchi, unlabored Cardiovascular exam: PRESENT: RRR. ABSENT: diastolic murmur, rubs, systolic murmur GI/Abdominal exam: PRESENT: normal bowel sounds, soft. ABSENT: distended, guarding, mass, organolmegaly, rebound, tenderness Rectal exam: PRESENT: deferred Gentrourinary exam: PRESENT: indwelling catheter Extremities exam: PRESENT: full ROM. ABSENT: calf tenderness, clubbing, pedal edema Neurological exam: PRESENT: altered Psychiatric exam: PRESENT: other - Delirous. Skin exam: PRESENT: dry, intact, warm. ABSENT: cyanosis, rash Laboratory/Radiographs Laboratory Results: 09/06/19 06:15 09/07/19 04:42 09/07/19 04:42 Sodium 138.9 Potassium 4.8 Chloride 110 H Carbon Dioxide 21 L Anion Gap 8 BUN 39 H Creatinine 1.18 Est GFR ( Amer) 55 L Glucose 104 Calcium 8.9 09/02/19 03:05 Blood Blood Culture - Final NO GROWTH IN 5 DAYS 09/02/19 09/02/19 03:05 03:05 Troponin I 0.032 NT-Pro-B Natriuret Pep 3220 H Impressions: Chest X-Ray 09/04/19 00:00 IMPRESSION: 1. Probable small right pleural effusion. 2. Slight ill-defined increased density in the right mid to lower lung and within the retrocardiac region on the left. This is slightly increased compared to the prior study and may represent areas of atelectasis or pneumonia. All labs, radiographs, diagnostic studies and EKGs were personally reviewed: Yes In addition, reports of radiographic and diagnostic studies were read: Yes Assessment and Plan - Diagnosis (1) COPD exacerbation Is this a current diagnosis for this admission?: Yes Plan: Backing down on steroids as she has not had wheezing. May help delirium. (2) Elevated lactic acid level Is this a current diagnosis for this admission?: Yes Plan: Resolved (3) Encounter for weaning from ventilator Is this a current diagnosis for this admission?: Yes Plan: Extubated, resolved (4) Metabolic acidosis with respiratory acidosis Is this a current diagnosis for this admission?: Yes Plan: Resolved. (5) Delirium Is this a current diagnosis for this admission?: Yes Plan: This is likely due to medications, steroids, immobilty, sleep/wake cycle disturbance. Plan Summary: She will need to mobilize and be re-oriented for her delirium to clear. If she is clearer later today, transfer. Critical Time Critical Time (minutes): 30 Level of Care: ICU Anticipated discharge: Home with Homehealth Within: Other -: 1. The care of a critical patient is a dynamic process. This note is a videotape sales representative synopsis but static in nature. The timeframe for treatments given in order is not necessarily the actual time these treatments may have been done. 2. This patient requires critical care secondary to ongoing requirements for therapy not offered or safe outside the critical care environment. Transfer to a lower level of care will result in altered life or limb morbidity and mortality. 3. Multidisciplinary rounds completed. 4. ABCDE bundle addressed.
[2019-09-07] MEDS: NYSTATIN TOPICAL POWDER 15 GM TP SCH ×2 (10:00→17:16)
[2019-09-07] MEDS: LISINOPRIL 10 MG TABLET PO SCH (11:11)
[2019-09-07] MEDS: METOPROLOL TARTRATE 50 MG TABLET PO SCH ×2 (11:11→21:11)
[2019-09-07] MEDS: AMLODIPINE BESYLATE 10 MG TABLET PO SCH (11:11)
[2019-09-07] MEDS: HYDRALAZINE HCL INJ/PF 20 MG/1 ML SDV IV PRN ×3 (11:26→20:19)
--- NOTE | 2019-09-07 19:01 | Progress Note ---
Provider Note Provider Note: Received patient is a downgraded from the ICU. She is a 68-year-old female with a past medical history significant for COPD, hypertension, and obesity. She was noted to the ICU in acute respiratory failure secondary to COPD exacerbation and suspected aspiration pneumonitis. She was intubated on 09/02/2019, extubated 09/03/2019, reintubated 09/04/2019, and finally successfully extubated 09/06/2019. Progress notes, imaging, laboratory results, nursing notes, vital signs, and orders reviewed. She continues on scheduled and as needed nebulizer treatments and IV Solu-Medrol therapy. She has blood pressures remain uncontrolled. She has IV hydralazine available to her at this time. Unfortunately, she has failed her post extubation swallow screens and so is not able to take her oral medications yet. We will add clonidine patch. Patient was briefly seen this afternoon upon arrival to [facility]. Discussed clinical course and plan of care with nursing. She is noted to have a slight left side facial droop (unclear if this is related to patient's baseline, perhaps edema related to ET tube securing, or new finding. No other focal deficits). Per Dr. Brush no evidence/concern for CVA at this time and droop/weakness r/t medications. Patient is alert and oriented, though impulsive with flight of ideas. She does answer questions appropriately, socially appropriate, and follows all directions. She is not noted to have other focal deficits (Chemistry Technician 5/5 bilaterally, excellent pull/push bilaterally, moves all extremities). Plan on CT if droop not resolved by a.m.
[2019-09-07] MEDS: QUETIAPINE FUMARATE 100 MG TABLET PO SCH (21:11)
[2019-09-07] MEDS ORDERED: HYDRALAZINE HCL INJ/PF 20 MG/1 ML SDV IV ONE (23:00)
[2019-09-07] MEDS ORDERED: CLONIDINE 0.2 MG/24 HR PATCH.TDWK TD SCH (23:00)
[2019-09-07] MEDS ORDERED: CLONIDINE 0.2 MG/24 HR PATCH.TDWK ONE (23:07)
[2019-09-07] MEDS ORDERED: CLONIDINE 0.2 MG/24 HR PATCH.TDWK TD ONE (23:30)
[2019-09-08] MEDS: RINGERS SOLUTION,LACTATED 1,000 ML IV PRN (01:00)
[2019-09-08] MEDS: IPRATROPIUM/ALBUTEROL 0.5-2.5 MG/3 ML AMPUL NEB SCH ×4 (02:08→20:39)
[2019-09-08] MEDS: HYDRALAZINE HCL INJ/PF 20 MG/1 ML SDV IV PRN ×3 (04:02→18:10)
[2019-09-08] MEDS: HEPARIN SOD (PORCINE) 5,000 UNIT/ML 1 ML VIAL SUBCUT SCH ×3 (05:23→21:16)
[2019-09-08] MEDS ORDERED: NITROGLYCERIN 5 MG (0.2 MG/HR) PATCH.TD24 TD ONE (05:45)
[2019-09-08] MEDS ORDERED: ENALAPRILAT DIHYDRATE INJ/PF 1.25 MG/1 ML SDV IV ONE (05:45)
[2019-09-08] MEDS ORDERED: METHYLPREDNISOLONE INJ 40 MG/1 ML SDV IV SCH (06:00)
[2019-09-08 06:27] LABS: ARTERIAL BLOOD BASE EXCESS -3.1 mmol/L; ARTERIAL BLOOD H2CO3 1.13 mmol/L (1.05-1.35); ARTERIAL BLOOD HCO3 21.6 mmol/L (20-24); ARTERIAL BLOOD O2 SATURATION 94.8 % (94-98); ARTERIAL BLOOD PCO2 37.5 mmHg (35-45); ARTERIAL BLOOD PH 7.38 (7.35-7.45); ARTERIAL BLOOD PO2 74.4 mmHg (80-100); ARTERIAL BLOOD TOTAL CO2 22.8 mmol/L (21-25)
[2019-09-08 06:29] LABS: ARTERIAL BLOOD FIO2 3L
[2019-09-08] MEDS: IPRATROPIUM/ALBUTEROL 0.5-2.5 MG/3 ML AMPUL NEB PRN (08:22)
--- NOTE | 2019-09-08 09:39 | RADIOLOGY REPORT (SQ) ---
EXAM DESCRIPTION: CHEST SINGLE VIEW IMAGES COMPLETED DATE/TIME: 09/08/2019 9:24 am REASON FOR STUDY: hypoxia, dyspnea, cough COMPARISON: 09/04/2019 NUMBER OF VIEWS: One view. TECHNIQUE: Single frontal radiographic image of the chest acquired. LIMITATIONS: Body habitus. Portable technique. FINDINGS: LUNGS AND PLEURA: Subsegmental airspace disease right lower lobe. MEDIASTINUM AND HEART: Stable heart size and mediastinal structures. SUPPORT DEVICES: Interval removal of nasogastric and endotracheal tubes. BONY STRUCTURES: No acute findings. HARDWARE: None. OTHER: No other significant finding. IMPRESSION: Residual pneumonia or atelectasis right lower lobe. Clinical correlation is needed. Reading location - IP/workstation name: [email or web address]
[2019-09-08 09:55] LABS: HEMATOCRIT 34.2 % (36.0-47.0); HEMOGLOBIN 11.4 g/dL (12.0-15.5); MEAN CORPUSCULAR HEMOGLOBIN 26.4 pg (27.0-33.4); MEAN CORPUSCULAR HGB CONC 33.3 g/dL (32.0-36.0); MEAN CORPUSCULAR VOLUME 79 fl (80-97); PLATELET COUNT 167 10^3/uL (150-450); RED BLOOD COUNT 4.31 10^6/uL (3.72-5.28); RED CELL DISTRIBUTION WIDTH 17.2 % (11.5-14.0); WHITE BLOOD COUNT 9.9 10^3/uL (4.0-10.5)
[2019-09-08 10:01] LABS: ANION GAP 9 (5-19); BLOOD UREA NITROGEN 42 mg/dL (7-20); CALCIUM 8.9 mg/dL (8.4-10.2); CARBON DIOXIDE 19 mmol/L (22-30); CHLORIDE 112 mmol/L (98-107); GLUCOSE 92 mg/dL (75-110); POTASSIUM 4.8 mmol/L (3.6-5.0)
[2019-09-08] MEDS: METOPROLOL TARTRATE 50 MG TABLET PO SCH ×2 (11:03→21:16)
[2019-09-08] MEDS: AMLODIPINE BESYLATE 10 MG TABLET PO SCH (11:03)
[2019-09-08] MEDS: LISINOPRIL 10 MG TABLET PO SCH (11:04)
[2019-09-08] MEDS: CEFTRIAXONE 1 GM/D5W RTU 1 GM/50 ML RTUPB IV SCH (11:05)
[2019-09-08] MEDS: NYSTATIN TOPICAL POWDER 15 GM TP SCH ×2 (11:06→18:10)
[2019-09-08 11:07] LABS: APPEARANCE,URINE SLIGHTLY-CLOUDY; BILIRUBIN,URINE NEGATIVE (NEGATIVE); COLOR,URINE YELLOW; GLUCOSE, URINE NEGATIVE (NEGATIVE); KETONES,URINE TRACE mg/dL (NEGATIVE); PROTEIN,URINE 30 mg/dL (NEGATIVE); TRIPLE PHOSPHATE CRYSTAL,URINE MANY /HPF; URINE SPECIFIC GRAVITY 1.016; UROBILINOGEN,URINE NEGATIVE mg/dL (<2.0)
--- NOTE | 2019-09-08 11:36 | PDOC PROGRESS REPORT ---
Subjective Progress Note for:: 09/08/19 Subjective:: The patient is a 68-year-old female with a past medical history of hypertension, COPD, obesity who was admitted to the ICU in acute respiratory failure secondary to COPD exacerbation and suspected aspiration pneumonitis. She was intubated on 09/02/2019, extubated 09/03/2019, reintubated 09/04/2019, and finally successfully extubated 09/06/2019. She was downgraded to IMCU 09/07/19. Patient was seen on morning rounds. She was found resting in bed, comfortably, on supplemental oxygen via nasal cannula. She reports she is not home O2 dependent. She is alert and oriented to self and place, though with increased confusion as compared to last night. However, nursing noted that she had improved clarity earlier this morning; it appears that her mental status waxed a nd wanes. She does report shortness of breath and cough. Otherwise, she denies chest pain, palpitations, abdominal pain, and nausea. ROS is somewhat limited due to the patient's confusion. Discussed with nursing. Reason For Visit: ACUTE RESPIRATORY FAILURE DUE TO HYPERCAPNIA Physical Exam Vital Signs: Temp Pulse Resp BP Pulse Ox 98.7 F 88 23 H 154/62 H 95 09/08/19 08:09 09/08/19 08:22 09/08/19 08:22 09/08/19 08:09 09/08/19 08:22 Intake & Output 09/07/19 09/08/19 09/09/19 06:59 06:59 06:59 Intake Total 1040 Output Total 2585 1600 Balance -1545 -1600 Weight 96.8 kg 88.7 kg General appearance: PRESENT: no acute distress, cooperative, obese, well- developed, well-nourished Head exam: PRESENT: atraumatic, normocephalic Eye exam: PRESENT: conjunctiva pink, EOMI, PERRLA. ABSENT: scleral icterus Mouth exam: PRESENT: moist, tongue midline Respiratory exam: PRESENT: crackles, rhonchi, symmetrical, unlabored, other - Botox and Phenergan. ABSENT: rales, wheezes Cardiovascular exam: PRESENT: RRR. ABSENT: diastolic murmur, rubs, systolic murmur Pulses: PRESENT: normal dorsalis pedis pul Vascular exam: PRESENT: normal capillary refill GI/Abdominal exam: PRESENT: normal bowel sounds, soft. ABSENT: distended, guarding, mass, organolmegaly, rebound, tenderness Rectal exam: PRESENT: deferred Extremities exam: PRESENT: full ROM, +1 edema - BLE. ABSENT: calf tenderness, clubbing, pedal edema Neurological exam: PRESENT: alert, awake, oriented to person, oriented to place, CN II-XII grossly intact, other - Waxing waning delirium. ABSENT: motor sensory deficit Psychiatric exam: PRESENT: appropriate affect, normal mood. ABSENT: homicidal ideation, suicidal ideation Skin exam: PRESENT: dry, intact, warm. ABSENT: cyanosis, rash Results Laboratory Results: 09/08/19 09:17 09/08/19 09:17 09/08/19 09/08/19 09/08/19 06:00 09:17 09:17 WBC 9.9 RBC 4.31 Hgb 11.4 L Hct 34.2 L MCV 79 L MCH 26.4 L MCHC 33.3 RDW 17.2 H Plt Count 167 Carbonic Acid 1.13 HCO3/H2CO3 Ratio 19:1 ABG pH 7.38 ABG pCO2 37.5 ABG pO2 74.4 L ABG HCO3 21.6 ABG O2 Saturation 94.8 ABG Base Excess -3.1 FiO2 3L Sodium 140.0 Potassium 4.8 Chloride 112 H Carbon Dioxide 19 L Anion Gap 9 BUN 42 H Creatinine 1.23 Est GFR ( Amer) 53 L Glucose 92 Calcium 8.9 Urine Color Urine Appearance Urine pH Ur Specific [place] Urine Protein Urine Glucose (UA) Urine Ketones Urine Blood Urine RBC (Auto) 09/08/19 10:42 WBC RBC Hgb Hct MCV MCH MCHC RDW Plt Count Carbonic Acid HCO3/H2CO3 Ratio ABG pH ABG pCO2 ABG pO2 ABG HCO3 ABG O2 Saturation ABG Base Excess FiO2 Sodium Potassium Chloride Carbon Dioxide Anion Gap BUN Creatinine Est GFR ( Amer) Glucose Calcium Urine Color YELLOW Urine Appearance SLIGHTLY-CLOUDY Urine pH 9.0 Ur Specific [place] 1.016 Urine Protein 30 H Urine Glucose (UA) NEGATIVE Urine Ketones TRACE H Urine Blood MODERATE H Urine RBC (Auto) 2 09/02/19 07:57 Blood Blood Culture - Final NO GROWTH IN 5 DAYS 09/02/19 09/02/19 09/08/19 03:05 03:05 09:17 Troponin I 0.032 NT-Pro-B Natriuret Pep 3220 H 7040 H Impressions: Chest X-Ray 09/08/19 00:00 IMPRESSION: Residual pneumonia or atelectasis right lower lobe. Clinical correlation is needed. Assessment and Plan - Diagnosis (1) COPD exacerbation Is this a current diagnosis for this admission?: Yes Plan: Patient Sun admitted to the ICU; downgraded to [facility]. We will monitor on continuous cardiac telemetry and pulse oximetry. Will provide supplemental oxygen as needed to maintain saturations greater than 89%. Continue on scheduled and as needed nebulizer treatments. Provide IV Solu-Medrol. Mucinex once cleared for oral. Pulmonary toilet is encouraged with incentive spirometer, flutter valve, and early ambulation. (2) Respiratory failure with hypoxia and hypercapnia Qualifiers: Chronicity: acute Qualified Code(s): J96.01 - Acute respiratory failure with hypoxia; J96.02 - Acute respiratory failure with hypercapnia Is this a current diagnosis for this admission?: Yes Plan: Overall improved. Secondary to #1. Remaining evaluation and management as above. (3) CHF (congestive heart failure) Qualifiers: Heart failure type: unspecified Heart failure chronicity: acute Qualified Code(s): I50.9 - Heart failure, unspecified Is this a current diagnosis for this admission?: Yes Plan: Likely acute diastolic CHF secondary to bibasilar crackles and peripheral edema. proBNP elevated to 7000. No prior echo on file. Patient is unable to clarify whether or not this would be a new diagnosis. We will discontinue IV fluids. One-time dose IV Lasix. Currently in n.p.o. status. Echocardiogram pending. Metoprolol and lisinopril once taking p.o. Daily weights, strict I&O's (4) HTN (hypertension) Qualifiers: Hypertension type: essential hypertension Qualified Code(s): I10 - Essential (primary) hypertension Is this a current diagnosis for this admission?: Yes Plan: Hypertensive urgency. Blood pressures are improved today. Start clonidine patch. IV hydralazine as needed for blood pressure control. Resume lisinopril, metoprolol, amlodipine once cleared for p.o. intake. One-time IV furosemide dose; will reevaluate fluid volume status tomorrow. I am hesitant to start scheduled diuretic as the patient is in n.p.o. status. IV fluids have been placed on hold. (5) Delirium Is this a current diagnosis for this admission?: Yes Plan: This is likely due to medications, steroids, immobilty, sleep/wake cycle dis turbance. Gradually improving. Supportive care. Fall precautions. (6) UTI (urinary tract infection) Qualifiers: Hematuria presence: with hematuria Is this a current diagnosis for this admission?: Yes Plan: Initial urinalysis suggestive of UTI. Unfortunately urine culture not obtained. Repeat urinalysis today is slightly improved. Culture now pending. We will place patient on IV ceftriaxone. - Time Time Spent with patient: 35 or more minutes Medications reviewed and adjusted accordingly: Yes Anticipated discharge: Home with Homehealth
[2019-09-08] MEDS ORDERED: FUROSEMIDE INJ/PF 20 MG/2 ML SDV IV ONE (12:00)
[2019-09-08] MEDS: NITROGLYCERIN 5 MG (0.2 MG/HR) PATCH.TD24 TD SCH (14:45)
[2019-09-08] MEDS: METHYLPREDNISOLONE INJ 40 MG/1 ML SDV IV SCH ×2 (14:45→21:17)
[2019-09-08] MEDS ORDERED: DILTIAZEM HCL INJ 25 MG/5 ML VIAL IV ONE (14:45)
--- NOTE | 2019-09-08 16:36 | RADIOLOGY REPORT (SQ) ---
EXAM DESCRIPTION: U/S LTD DUPLEX ART/RAYMOND FLOW IMAGES COMPLETED DATE/TIME: 09/08/2019 4:24 pm REASON FOR STUDY: resistant hypertension COMPARISON: None. TECHNIQUE: Realtime and static grayscale images acquired. Selected color Doppler, velocities and spe ctral images recorded. LIMITATIONS: Limited due to the patient's body habitus and clinical condition. FINDINGS: RIGHT KIDNEY: RENAL ARTERY VELOCITIES: 92 cm/sec. Segmental artery velocity 85 cm/sec. RENAL VEIN: Color doppler flow present, patent. VELOCITY RATIO: 0.93. Normal waveforms. KIDNEY: Normal size. No significant pathology. LEFT KIDNEY: RENAL ARTERY VELOCITIES: 86 cm/sec. Segmental artery velocity 85 cm/sec. RENAL VEIN: Color doppler flow present, patent. VELOCITY RATIO: 0.87. Normal waveforms. KIDNEY: Normal size. No significant pathology. BLADDER: Not visualized. OTHER: No other significant finding. IMPRESSION: NO DOPPLER EVIDENCE OF HEMODYNAMICALLY SIGNIFICANT RENAL ARTERY STENOSIS. COMMENT: NORMAL RENAL ARTERY/AORTA VELOCITY RATIO IS LESS THAN OR EQUAL TO 3.5. TECHNICAL DOCUMENTATION: JOB ID: [id number] [employer]- All Rights Reserved Reading location - IP/workstation name: [email or web address]
[2019-09-08] MEDS: DILTIAZEM HCL INJ 25 MG/5 ML VIAL IV PRN (21:17)
[2019-09-08] MEDS: QUETIAPINE FUMARATE 100 MG TABLET PO SCH (21:17)
[2019-09-09] MEDS: HYDRALAZINE HCL INJ/PF 20 MG/1 ML SDV IV PRN ×2 (00:51→08:29)
[2019-09-09] MEDS: IPRATROPIUM/ALBUTEROL 0.5-2.5 MG/3 ML AMPUL NEB SCH ×4 (02:37→20:30)
[2019-09-09] MEDS: DILTIAZEM HCL INJ 25 MG/5 ML VIAL IV PRN ×2 (04:33→12:31)
[2019-09-09] MEDS: METHYLPREDNISOLONE INJ 40 MG/1 ML SDV IV SCH ×2 (05:50→13:30)
[2019-09-09] MEDS: HEPARIN SOD (PORCINE) 5,000 UNIT/ML 1 ML VIAL SUBCUT SCH ×3 (05:50→21:49)
[2019-09-09 06:41] LABS: HEMATOCRIT 34.5 % (36.0-47.0); HEMOGLOBIN 11.5 g/dL (12.0-15.5); MEAN CORPUSCULAR HEMOGLOBIN 26.6 pg (27.0-33.4); MEAN CORPUSCULAR HGB CONC 33.4 g/dL (32.0-36.0); MEAN CORPUSCULAR VOLUME 80 fl (80-97); PLATELET COUNT 167 10^3/uL (150-450); RED BLOOD COUNT 4.34 10^6/uL (3.72-5.28); RED CELL DISTRIBUTION WIDTH 17.2 % (11.5-14.0); WHITE BLOOD COUNT 8.7 10^3/uL (4.0-10.5)
[2019-09-09 07:01] LABS: ANION GAP 8 (5-19); BLOOD UREA NITROGEN 44 mg/dL (7-20); CALCIUM 9.2 mg/dL (8.4-10.2); CARBON DIOXIDE 22 mmol/L (22-30); CHLORIDE 111 mmol/L (98-107); GLUCOSE 104 mg/dL (75-110); POTASSIUM 4.6 mmol/L (3.6-5.0)
[2019-09-09] MEDS: METOPROLOL TARTRATE 50 MG TABLET PO SCH ×2 (09:00→21:48)
[2019-09-09] MEDS: LISINOPRIL 10 MG TABLET PO SCH (09:00)
[2019-09-09] MEDS: NIFEDIPINE 30 MG TAB.ER.24 PO SCH (09:00)
[2019-09-09] MEDS: CEFTRIAXONE 1 GM/D5W RTU 1 GM/50 ML RTUPB IV SCH (09:07)
[2019-09-09] MEDS: NITROGLYCERIN 5 MG (0.2 MG/HR) PATCH.TD24 TD SCH (09:07)
[2019-09-09] MEDS: NYSTATIN TOPICAL POWDER 15 GM TP SCH ×2 (09:08→17:05)
--- NOTE | 2019-09-09 18:06 | PDOC PROGRESS REPORT ---
Subjective Progress Note for:: 09/09/19 Subjective:: Patient seems to be doing pretty well today. Blood pressure is notably elevated I have increased her BP meds appropriately. She is still requiring nasal cannula submental oxygen but we can continue titrating this down as able. She is alert and awake and pleasantly confused speaking nonsense about becoming a volunteer in remodeling the bathrooms in her hospital room. Creatinine is higher, renal ultrasound was negative for renal artery stenosis, echocardiogram is pending. Reason For Visit: ACUTE RESPIRATORY FAILURE DUE TO HYPERCAPNIA Physical Exam Vital Signs: Temp Pulse Resp BP Pulse Ox 98.1 F 79 21 H 160/85 H 94 09/09/19 15:47 09/09/19 15:47 09/09/19 15:47 09/09/19 15:47 09/09/19 15:47 Intake & Output 09/08/19 09/09/19 09/10/19 06:59 06:59 06:59 Intake Total 861 50 Output Total 1600 2400 Balance -1600 -1539 50 Weight 88.7 kg 86.1 kg General appearance: PRESENT: no acute distress, well-developed, well-nourished Head exam: PRESENT: atraumatic, normocephalic Eye exam: PRESENT: conjunctiva pink Mouth exam: PRESENT: moist Respiratory exam: PRESENT: clear to auscultation cecilia. ABSENT: rales, rhonchi, wheezes Cardiovascular exam: PRESENT: RRR. ABSENT: diastolic murmur, rubs, systolic murmur GI/Abdominal exam: PRESENT: normal bowel sounds, soft. ABSENT: distended, guarding, mass, organolmegaly, rebound, tenderness Neurological exam: PRESENT: alert, altered, awake, oriented to person, oriented to place. ABSENT: oriented to time, oriented to situation Psychiatric exam: PRESENT: appropriate affect, normal mood Skin exam: PRESENT: dry, intact, warm Results Laboratory Results: 09/09/19 05:40 09/09/19 05:40 09/09/19 09/09/19 05:40 05:40 WBC 8.7 RBC 4.34 Hgb 11.5 L Hct 34.5 L MCV 80 MCH 26.6 L MCHC 33.4 RDW 17.2 H Plt Count 167 Sodium 141.3 Potassium 4.6 Chloride 111 H Carbon Dioxide 22 Anion Gap 8 BUN 44 H Creatinine 1.37 H Est GFR ( Amer) 46 L Glucose 104 Calcium 9.2 09/02/19 09/02/19 09/08/19 03:05 03:05 09:17 Troponin I 0.032 NT-Pro-B Natriuret Pep 3220 H 7040 H Impressions: Chest X-Ray 09/08/19 00:00 IMPRESSION: Residual pneumonia or atelectasis right lower lobe. Clinical correlation is needed. Vascular Ultrasound 09/08/19 00:00 IMPRESSION: NO DOPPLER EVIDENCE OF HEMODYNAMICALLY SIGNIFICANT RENAL ARTERY ST ENOSIS. Assessment and Plan - Diagnosis (1) CHF (congestive heart failure) Qualifiers: Heart failure type: unspecified Heart failure chronicity: acute Qualified Code(s): I50.9 - Heart failure, unspecified Is this a current diagnosis for this admission?: Yes Plan: Likely acute diastolic CHF secondary to bibasilar crackles and peripheral edema. proBNP elevated to 7000. No prior echo on file. Patient is unable to clarify whether or not this would be a new diagnosis. We will discontinue IV fluids. One-time dose IV Lasix. Currently in n.p.o. status. Echocardiogram pending. Metoprolol and lisinopril once taking p.o. Daily weights, strict I&O's 09/09/2019 Seems to be breathing quite well today Echo still pending Cardiac meds increased (2) COPD exacerbation Is this a current diagnosis for this admission?: Yes Plan: Patient admitted to the ICU; downgraded to [facility]. We will monitor on continuous cardiac telemetry and pulse oximetry. Will provide supplemental oxygen as needed to maintain saturations greater than 89%. Continue on scheduled and as needed nebulizer treatments. Provide IV Solu-Medrol. Mucinex once cleared for oral. Pulmonary toilet is encouraged with incentive spirometer, flutter valve, and early ambulation. 09/09/2019 She does not need plan Medrol anymore, can change to oral prednisone for 5 days (3) Delirium Is this a current diagnosis for this admission?: Yes Plan: This is likely due to medications, steroids, immobilty, sleep/wake cycle disturbance. Gradually improving. Supportive care. Fall precautions. 09/09/2019 Still speaking nonsense and rather confused though she is somewhat oriented; questionable how much of this confusion is underlying cognitive impairment versus new hospital and acute illness delirium (4) HTN (hypertension) Qualifiers: Hypertension type: essential hypertension Qualified Code(s): I10 - Essential (primary) hypertension Is this a current diagnosis for this admission?: Yes Plan: Hypertensive urgency. Blood pressures are improved today. Start clonidine patch. IV hydralazine as needed for blood pressure control. Resume lisinopril, metoprolol, amlodipine once cleared for p.o. intake. One-time IV furosemide dose; will reevaluate fluid volume status tomorrow. I am hesitant to start scheduled diuretic as the patient is in n.p.o. status. IV fluids have been placed on hold. 09/09/2019 Amlodipine is an inferior blood pressure medication, changed to more effective nifedipine which can be titrated up as needed (5) Respiratory failure with hypoxia and hypercapnia Qualifiers: Chronicity: acute Qualified Code(s): J96.01 - Acute respiratory failure with hypoxia; J96.02 - Acute respiratory failure with hypercapnia Is this a current diagnosis for this admission?: Yes (6) UTI (urinary tract infection) Qualifiers: Hematuria presence: with hematuria Is this a current diagnosis for this admission?: Yes - Time Time Spent with patient: 25-34 minutes Medications reviewed and adjusted accordingly: Yes - Inpatient Certification Medical Necessity: Significant Comorbidiites Make Outpatient Treatment Too Risky, Need Close Monitoring Due to Risk of Patient Decompensation, Need for IV Antibiotics, Risk of Complication if Not Cared For in Hospital, Risk of Diagnosis Which Will Require Inpatient Eval/Care/Monitoring
[2019-09-09] MEDS: QUETIAPINE FUMARATE 100 MG TABLET PO SCH (21:49)
[2019-09-10] MEDS: IPRATROPIUM/ALBUTEROL 0.5-2.5 MG/3 ML AMPUL NEB SCH ×4 (01:39→20:04)
[2019-09-10] MEDS: HEPARIN SOD (PORCINE) 5,000 UNIT/ML 1 ML VIAL SUBCUT SCH ×3 (05:13→22:05)
--- NOTE | 2019-09-10 07:24 | XCELERA REPORT ---
[address] [address] Transthoracic Echocardiogram Report Name: SKYELR AGARWAL Age: 68 yrs Gender: Female : 1950 Patient Status: Inpatient Patient Location: [address] [place] [address] Study Date: 09/09/2019 06:17 PM History: CHF Height: 67 in Weight: 195 lb BSA: 2.0 m2 Procedure: A complete two-dimensional transthoracic echocardiogram was performed (2D, M-mode, spectral and color flow Doppler). The study was technically adequate with some images being suboptimal in quality. The study was technically difficult with many images being suboptimal in quality. Reason For Study: CHF Ordering Physician: JAZMINE GOFF Performed By: Adamaris Sandoval Interpretation Summary Left ventricular systolic function is normal. The Ejection Fraction estimate is 60-65% The right ventricle is normal in size and function. There is a trace amount of mitral regurgitation There is mild aortic stenosis There is a trace amount of tricuspid regurgitation There is mild pulmonary hypertension by echo There is no pericardial effusion. MMode/2D Measurements & Calculations RVDd: 2.8 cm LVIDd: 4.5 cm FS: 37.5 % Ao root diam: 2.5 cm IVSd: 1.1 cm LVIDs: 2.8 cm EDV(Teich): 92.3 ml Ao root area: 4.8 cm2 LVPWd: 1.1 cm ESV(Teich): 29.8 ml LA dimension: 3.6 cm EF(Teich): 67.7 % LVOT diam: 2.0 cm LVOT area: 3.0 cm2 Doppler Measurements & Calculations MV E max rocío: MV P1/2t max rocío: Ao V2 max: LV V1 max P.5 cm/sec 128.3 cm/sec 205.0 cm/sec 9.4 mmHg MV A max rocío: MV P1/2t: 103.8 msec Ao max PG: LV V1 mean P.4 cm/sec MVA(P1/2t): 2.1 cm2 16.8 mmHg 4.5 mmHg MV E/A: 1.7 MV dec slope: Ao V2 mean: LV V1 max: 126.9 cm/sec 153.6 cm/sec 361.9 cm/sec2 Ao mean PG: LV V1 mean: MV dec time: 0.24 sec 8.1 mmHg 98.5 cm/sec Ao V2 VTI: 34.9 cmLV V1 VTI: 32.6 cm KM(I,D): 2.8 cm2 KM(V,D): 2.3 cm2 SV(LVOT): 98.4 ml TV V2 max: PA V2 max: MV P1/2t-pr_phl: 336.6 cm/sec 119.0 cm/sec 103.8 msec TV max P.3 mmHg PA max P.7 mmHg Left Ventricle The left ventricle is grossly normal size. There is moderate concentric left ventricular hypertrophy. Left ventricular systolic function is normal. The Ejection Fraction estimate is 60-65%. Doppler measurements suggest pseudonormalized left ventricular relaxation, which is associated with grade II/IV or mild to moderate diastolic dysfunction. Right Ventricle The right ventricle is normal in size and function. Atria The right atrium is normal in size. The left atrium is mildly dilated. Mitral Valve There is mild mitral annular calcification. There is a trace amount of mitral regurgitation. Aortic Valve The aortic valve is mildly calcified. The aortic valve opens well. The aortic valve is sclerotic and shows some degree of functional abnormality. There is mild aortic stenosis. Ao V=208 cm/s Bach gradient = 8 mm Hg. No aortic regurgitation is present. Tricuspid Valve The tricuspid valve is normal in structure and function. There is a trace amount of tricuspid regurgitation. Right ventricular systolic pressure is estimated to be elevated at 40-50mmHg. There is mild pulmonary hypertension by echo. Pulmonic Valve The pulmonic valve is not well visualized. There is a mild amount of pulmonic regurgitation. Great Vessels The aortic root is normal size. The inferior vena cava appeared normal and decreased > 50% with respiration (RAP 5-10 mmHg). Effusions There is no pericardial effusion. : JAZMINE GOFF Anil
[2019-09-10] MEDS: METOPROLOL TARTRATE 50 MG TABLET PO SCH ×2 (08:59→22:03)
[2019-09-10] MEDS: NITROGLYCERIN 5 MG (0.2 MG/HR) PATCH.TD24 TD SCH (09:06)
[2019-09-10] MEDS: PREDNISONE 20 MG TABLET PO SCH (09:06)
[2019-09-10] MEDS: NIFEDIPINE 30 MG TAB.ER.24 PO SCH (09:08)
[2019-09-10] MEDS: LISINOPRIL 10 MG TABLET PO SCH (09:08)
[2019-09-10] MEDS: CEFTRIAXONE 1 GM/D5W RTU 1 GM/50 ML RTUPB IV SCH (09:09)
[2019-09-10] MEDS: NYSTATIN TOPICAL POWDER 15 GM TP SCH ×2 (09:09→17:43)
--- NOTE | 2019-09-10 12:55 | PDOC PROGRESS REPORT ---
Subjective Progress Note for:: 09/10/19 Reason For Visit: ACUTE RESPIRATORY FAILURE DUE TO HYPERCAPNIA 09/10/2019 Patient was admitted with COPD exacerbation and altered mental status Physical Exam Vital Signs: Temp Pulse Resp BP Pulse Ox 97.9 F 50 L 18 172/75 H 96 09/10/19 08:11 09/10/19 09:02 09/10/19 09:02 09/10/19 08:11 09/10/19 09:02 Intake & Output 09/09/19 09/10/19 09/11/19 06:59 06:59 06:59 Intake Total 861 526 Output Total 2400 925 Balance -1539 -399 Weight 86.1 kg 86.6 kg General appearance: PRESENT: no acute distress Respiratory exam: PRESENT: clear to auscultation cecilia. ABSENT: rales, rhonchi, wheezes Cardiovascular exam: PRESENT: RRR. ABSENT: diastolic murmur, rubs, systolic murmur Neurological exam: PRESENT: alert, awake, oriented to person, oriented to place, other - Possibly some left-sided facial weakness Psychiatric exam: PRESENT: anxious, unusual affect Results Laboratory Results: 09/09/19 05:40 09/09/19 05:40 09/08/19 10:42 Catheterized Urine Urine Culture - Final Proteus Mirabilis 09/02/19 09/02/19 09/08/19 03:05 03:05 09:17 Troponin I 0.032 NT-Pro-B Natriuret Pep 3220 H 7040 H Impressions: Chest X-Ray 09/08/19 00:00 IMPRESSION: Residual pneumonia or atelectasis right lower lobe. Clinical correlation is needed. Vascular Ultrasound 09/08/19 00:00 IMPRESSION: NO DOPPLER EVIDENCE OF HEMODYNAMICALLY SIGNIFICANT RENAL ARTERY STENOSIS. Assessment and Plan - Diagnosis (1) CHF (congestive heart failure) Qualifiers: Heart failure type: unspecified Heart failure chronicity: acute Qualified Code(s): I50.9 - Heart failure, unspecified Is this a current diagnosis for this admission?: Yes (2) COPD exacerbation Is this a current diagnosis for this admission?: Yes (3) Delirium Is this a current diagnosis for this admission?: Yes (4) Elevated lactic acid level Is this a current diagnosis for this admission?: Yes (5) HTN (hypertension) Qualifiers: Hypertension type: essential hypertension Qualified Code(s): I10 - Essential (primary) hypertension Is this a current diagnosis for this admission?: Yes (6) UTI (urinary tract infection) Qualifiers: Hematuria presence: with hematuria Is this a current diagnosis for this admission?: Yes - Plan Summary Summary: 09/10/2019 Temperature 97.9 pulse 50 blood pressure is elevated 172/75 although earlier today was 158/64 Patient currently on Lopressor 50 mg p.o. every 12 hours, lisinopril 40 mg daily, Procardia 30 mg daily, as well as as needed medicines Oxygen saturation 96 to 98% on between 2 and 4 L nasal cannula Seems to be more awake and alert, very little confusion. I am going to get a CT head scan because she still has a little left-sided facial droop. COVID is negative, blood cultures negative, urine cultures growing Proteus. She is currently on Rocephin. Patient was originally admitted for COPD exacerbation and confusion. According to nursing patient's daughter who lives in [place] would like to come up when the patient is discharge pick her up from the hospital and take her back to [place]. - Time Time Spent with patient: 25-34 minutes
--- NOTE | 2019-09-10 14:53 | RADIOLOGY REPORT (SQ) ---
EXAM DESCRIPTION: CT HEAD WITHOUT IMAGES COMPLETED DATE/TIME: 09/10/2019 2:44 pm REASON FOR STUDY: change in mental status COMPARISON: None. TECHNIQUE: Axial images acquired through the brain without intravenous contrast. Images reviewed wi th bone, brain and subdural windows. Additional sagittal and coronal reconstructions were generated. Images stored on PACS. All CT scanners at this facility use dose modulation, iterative reconstruction, and/or weight based d osing when appropriate to reduce radiation dose to as low as reasonably achievable (ALARA). [facility]: Dose Right [facility]: CareDose [facility]: Dose Right [facility]: Teradose 4D [facility]: Y'all RADIATION DOSE: CT Rad equipment meets quality standard of care and radiation dose reduction techniq ues were employed. CTDIvol: 48.6 mGy. DLP: 905 mGy-cm. mGy. LIMITATIONS: None. FINDINGS: VENTRICLES: Prominent. CEREBRUM: No masses. No hemorrhage. No midline shift. Areas of low density in the white matter mos t likely due to chronic micro-vascular ischemic change. No evidence for acute infarction. CEREBELLUM: No masses. No hemorrhage. No alteration of density. No evidence for acute infarction. EXTRAAXIAL SPACES: Mild age-related involutional change. No fluid collections. No masses. ORBITS AND GLOBE: No intra- or extraconal masses. Normal contour of globe without masses. CALVARIUM: No fracture. PARANASAL SINUSES: No fluid or mucosal thickening. SOFT TISSUES: No mass or hematoma. OTHER: No other significant finding. IMPRESSION: MILD CHRONIC CHANGES OF ATROPHY AND MICROVASCULAR ISCHEMIA. NO ACUTE PROCESS. EVIDENCE OF ACUTE STROKE: NO. TECHNICAL DOCUMENTATION: JOB ID: [id number] Quality ID # [id number]: Final reports with documentation of one or more dose reduction techniques (e.g., Au tomated exposure control, adjustment of the mA and/or kV according to patient size, use of iterative reconstruction technique) 2010 [employer]- All Rights Reserved Reading location - IP/workstation name: [email or web address]
[2019-09-10] MEDS: DILTIAZEM HCL INJ 25 MG/5 ML VIAL IV PRN (18:19)
[2019-09-10] MEDS: HYDRALAZINE HCL INJ/PF 20 MG/1 ML SDV IV PRN (21:51)
[2019-09-10] MEDS: QUETIAPINE FUMARATE 100 MG TABLET PO SCH (22:03)
[2019-09-11] MEDS: IPRATROPIUM/ALBUTEROL 0.5-2.5 MG/3 ML AMPUL NEB SCH ×4 (03:06→20:49)
[2019-09-11] MEDS: HEPARIN SOD (PORCINE) 5,000 UNIT/ML 1 ML VIAL SUBCUT SCH ×3 (06:22→21:44)
[2019-09-11] MEDS: NITROGLYCERIN 5 MG (0.2 MG/HR) PATCH.TD24 TD SCH (11:08)
[2019-09-11] MEDS: LISINOPRIL 10 MG TABLET PO SCH (11:09)
[2019-09-11] MEDS: NIFEDIPINE 30 MG TAB.ER.24 PO SCH (11:10)
[2019-09-11] MEDS: PREDNISONE 20 MG TABLET PO SCH (11:10)
[2019-09-11] MEDS: NYSTATIN TOPICAL POWDER 15 GM TP SCH ×2 (11:11→17:32)
[2019-09-11] MEDS: CEFTRIAXONE 1 GM/D5W RTU 1 GM/50 ML RTUPB IV SCH (11:12)
[2019-09-11] MEDS: METOPROLOL TARTRATE 50 MG TABLET PO SCH ×2 (11:12→21:44)
--- NOTE | 2019-09-11 11:36 | PDOC PROGRESS REPORT ---
Subjective Progress Note for:: 09/11/19 Reason For Visit: ACUTE RESPIRATORY FAILURE DUE TO HYPERCAPNIA 09/11/2019 COPD exacerbation, altered mental status, debility, hypertension Physical Exam Vital Signs: Temp Pulse Resp BP Pulse Ox 97.5 F 56 L 18 144/56 H 98 09/11/19 08:18 09/11/19 08:39 09/11/19 08:39 09/11/19 08:18 09/11/19 08:39 Intake & Output 09/10/19 09/11/19 09/12/19 06:59 06:59 06:59 Intake Total 526 1693 Output Total 925 1200 Balance -399 493 Weight 86.6 kg 86.6 kg General appearance: PRESENT: no acute distress Respiratory exam: PRESENT: clear to auscultation cecilia. ABSENT: rales, rhonchi, wheezes Cardiovascular exam: PRESENT: RRR. ABSENT: diastolic murmur, rubs, systolic murmur Neurological exam: PRESENT: alert, awake, other - Patient has moments of confusion. I am wondering if this is chronic and she is back to her baseline Psychiatric exam: PRESENT: appropriate affect, normal mood. ABSENT: homicidal ideation, suicidal ideation Results Laboratory Results: 09/09/19 05:40 09/09/19 05:40 09/02/19 09/02/19 09/08/19 03:05 03:05 09:17 Troponin I 0.032 NT-Pro-B Natriuret Pep 3220 H 7040 H Impressions: Chest X-Ray 09/08/19 00:00 IMPRESSION: Residual pneumonia or atelectasis right lower lobe. Clinical correlation is needed. Vascular Ultrasound 09/08/19 00:00 IMPRESSION: NO DOPPLER EVIDENCE OF HEMODYNAMICALLY SIGNIFICANT RENAL ARTERY STENOSIS. Head CT 09/10/19 00:00 IMPRESSION: MILD CHRONIC CHANGES OF ATROPHY AND MICROVASCULAR ISCHEMIA. NO ACUTE PROCESS. EVIDENCE OF ACUTE STROKE: NO. Assessment and Plan - Diagnosis (1) CHF (congestive heart failure) Qualifiers: Heart failure type: unspecified Heart failure chronicity: acute Qualified Code(s): I50.9 - Heart failure, unspecified Is this a current diagnosis for this admission?: Yes (2) COPD exacerbation Is this a current diagnosis for this admission?: Yes (3) Delirium Is this a current diagnosis for this admission?: Yes (4) Elevated lactic acid level Is this a current diagnosis for this admission?: Yes (5) HTN (hypertension) Qualifiers: Hypertension type: essential hypertension Qualified Code(s): I10 - Essential (primary) hypertension Is this a current diagnosis for this admission?: Yes (6) UTI (urinary tract infection) Qualifiers: Hematuria presence: with hematuria Is this a current diagnosis for this admission?: Yes - Plan Summary Summary: 09/10/2019 Temperature 97.9 pulse 50 blood pressure is elevated 172/75 although earlier to day was 158/64 Patient currently on Lopressor 50 mg p.o. every 12 hours, lisinopril 40 mg daily, Procardia 30 mg daily, as well as as needed medicines Oxygen saturation 96 to 98% on between 2 and 4 L nasal cannula Seems to be more awake and alert, very little confusion. I am going to get a CT head scan because she still has a little left-sided facial droop. COVID is negative, blood cultures negative, urine cultures growing Proteus. She is currently on Rocephin. Patient was originally admitted for COPD exacerbation and confusion. According to nursing patient's daughter who lives in [place] would like to come up when the patient is discharge pick her up from the hospital and take her back to [place]. 09/11/2019 CT head scan yesterday showed no acute changes no sign of stroke. His blood pre ssure remains slightly high and therefore her Procardia was increased from 30 mg to 60. Other blood pressure medicines include Lopressor 50 mg twice daily and lisinopril 40 mg daily I am going to try to see if patient needs home O2 because on the floor she is requiring 3 to 4 L to maintain her oxygen Physical therapy says patient only walked 20 feet and they recommend prison facility. Spoke to the patient's daughter today, Anh, down in [place] and said that patient is medically stable and will be ready to be discharged in the next 48 to 72 hours. Daughter lives on the second floor and the patient would have to ambulate 2 flights of steps to get in and out of her house or apartment. Medically patient may be better served with rehab and short-term prison facility - Time Time Spent with patient: 25-34 minutes
[2019-09-11] MEDS: QUETIAPINE FUMARATE 100 MG TABLET PO SCH (21:45)
[2019-09-12] MEDS: IPRATROPIUM/ALBUTEROL 0.5-2.5 MG/3 ML AMPUL NEB SCH ×4 (02:12→20:03)
[2019-09-12] MEDS: HEPARIN SOD (PORCINE) 5,000 UNIT/ML 1 ML VIAL SUBCUT SCH ×3 (05:47→21:23)
[2019-09-12] MEDS: CLONIDINE HCL 0.1 MG TABLET PO SCH ×3 (08:30→21:24)
[2019-09-12 08:34] LABS: ABSOLUTE EOSINOPHILS # (AUTO) 0.1 10^3/uL (0.0-0.6); ABSOLUTE LYMPHOCYTES (AUTO) 1.1 10^3/uL (0.5-4.7); ABSOLUTE MONOCYTES (AUTO) 0.5 10^3/uL (0.1-1.4); ABSOLUTE NEUT (AUTO) 5.3 10^3/uL (1.7-8.2); BASOPHILS % (AUTO) 0.4 % (0-2); EOSINOPHILS % (AUTO) 0.8 % (0-6); HEMATOCRIT 32.1 % (36.0-47.0); HEMOGLOBIN 10.7 g/dL (12.0-15.5); LYMPHOCYTES % (AUTO) 16.1 % (13-45); MEAN CORPUSCULAR HEMOGLOBIN 26.7 pg (27.0-33.4); MEAN CORPUSCULAR HGB CONC 33.4 g/dL (32.0-36.0); MEAN CORPUSCULAR VOLUME 80 fl (80-97); MONOCYTES % (AUTO) 7.6 % (3-13); PLATELET COUNT 153 10^3/uL (150-450); RED BLOOD COUNT 4.01 10^6/uL (3.72-5.28); RED CELL DISTRIBUTION WIDTH 17.5 % (11.5-14.0); SEGMENTED NEUTROPHILS % (AUTO) 75.1 % (42-78); TOTAL CELLS COUNTED % (AUTO) 100 %
[2019-09-12 08:53] LABS: BLOOD UREA NITROGEN 39 mg/dL (7-20); CALCIUM 8.9 mg/dL (8.4-10.2); GLUCOSE 81 mg/dL (75-110); POTASSIUM 4.3 mmol/L (3.6-5.0)
[2019-09-12 08:58] LABS: CARBON DIOXIDE 27 mmol/L (22-30); CHLORIDE 107 mmol/L (98-107)
[2019-09-12 09:05] LABS: ANION GAP 4 (5-19)
[2019-09-12] MEDS: PREDNISONE 20 MG TABLET PO SCH (10:00)
[2019-09-12] MEDS: CEFTRIAXONE 1 GM/D5W RTU 1 GM/50 ML RTUPB IV SCH (10:00)
[2019-09-12] MEDS: METOPROLOL TARTRATE 50 MG TABLET PO SCH ×3 (10:00→21:23)
[2019-09-12] MEDS: LISINOPRIL 10 MG TABLET PO SCH (10:00)
[2019-09-12] MEDS: NIFEDIPINE 30 MG TAB.ER.24 PO SCH (10:00)
[2019-09-12] MEDS: NITROGLYCERIN 5 MG (0.2 MG/HR) PATCH.TD24 TD SCH (10:01)
[2019-09-12] MEDS: NYSTATIN TOPICAL POWDER 15 GM TP SCH ×2 (10:03→17:05)
--- NOTE | 2019-09-12 11:16 | PDOC PROGRESS REPORT ---
Subjective Progress Note for:: 09/12/19 Reason For Visit: ACUTE RESPIRATORY FAILURE DUE TO HYPERCAPNIA 09/12/2019 COPD exacerbation, altered mental status, refractory hypertension, debility Physical Exam Vital Signs: Temp Pulse Resp BP Pulse Ox 97.8 F 56 L 16 175/87 H 972 H 09/12/19 08:02 09/12/19 08:22 09/12/19 08:22 09/12/19 08:02 09/12/19 08:22 Intake & Output 09/11/19 09/12/19 09/13/19 06:59 06:59 06:59 Intake Total 1693 1317 Output Total 1200 680 Balance 493 637 Weight 86.6 kg 85.5 kg General appearance: PRESENT: no acute distress Respiratory exam: PRESENT: clear to auscultation cecilia. ABSENT: rales, rhonchi, wheezes Cardiovascular exam: PRESENT: RRR. ABSENT: diastolic murmur, rubs, systolic murmur Neurological exam: PRESENT: alert, awake, oriented to person, oriented to place, oriented to time, oriented to situation, CN II-XII grossly intact. ABSENT: motor sensory deficit Psychiatric exam: PRESENT: appropriate affect, normal mood. ABSENT: homicidal ideation, suicidal ideation Results Laboratory Results: 09/12/19 08:10 09/12/19 08:10 09/12/19 09/12/19 08:10 08:10 WBC 7.0 RBC 4.01 Hgb 10.7 L Hct 32.1 L MCV 80 MCH 26.7 L MCHC 33.4 RDW 17.5 H Plt Count 153 Seg Neutrophils % 75.1 Sodium 137.8 Potassium 4.3 Chloride 107 Carbon Dioxide 27 Anion Gap 4 L BUN 39 H Creatinine 1.20 Est GFR ( Amer) 54 L Glucose 81 Calcium 8.9 09/02/19 09/02/19 09/08/19 03:05 03:05 09:17 Troponin I 0.032 NT-Pro-B Natriuret Pep 3220 H 7040 H Impressions: Chest X-Ray 09/08/19 00:00 IMPRESSION: Residual pneumonia or atelectasis right lower lobe. Clinical correlation is needed. Vascular Ultrasound 09/08/19 00:00 IMPRESSION: NO DOPPLER EVIDENCE OF HEMODYNAMICALLY SIGNIFICANT RENAL ARTERY STENOSIS. Head CT 09/10/19 00:00 IMPRESSION: MILD CHRONIC CHANGES OF ATROPHY AND MICROVASCULAR ISCHEMIA. NO ACUTE PROCESS. EVIDENCE OF ACUTE STROKE: NO. Assessment and Plan - Diagnosis (1) CHF (congestive heart failure) Qualifiers: Heart failure type: unspecified Heart failure chronicity: acute Qualified Code(s): I50.9 - Heart failure, unspecified Is this a current diagnosis for this admission?: Yes (2) COPD exacerbation Is this a current diagnosis for this admission?: Yes (3) Delirium Is this a current diagnosis for this admission?: Yes (4) Elevated lactic acid level Is this a current diagnosis for this admission?: Yes (5) HTN (hypertension) Qualifiers: Hypertension type: essential hypertension Qualified Code(s): I10 - Essential (primary) hypertension Is this a current diagnosis for this admission?: Yes (6) UTI (urinary tract infection) Qualifiers: Hematuria presence: with hematuria Is this a current diagnosis for this admission?: Yes - Plan Summary Summary: 09/10/2019 Temperature 97.9 pulse 50 blood pressure is elevated 172/75 although earlier today was 158/64 Patient currently on Lopressor 50 mg p.o. every 12 hours, lisinopril 40 mg daily, Procardia 30 mg daily, as well as as needed medicines Oxygen saturation 96 to 98% on between 2 and 4 L nasal cannula Seems to be more awake and alert, very little confusion. I am going to get a CT head scan because she still has a little left-sided facial droop. COVID is negative, blood cultures negative, urine cultures growing Proteus. She is currently on Rocephin. Patient was originally admitted for COPD exacerbation and confusion. According to nursing patient's daughter who lives in [place] would like to come up when the patient is discharge pick her up from the hospital and take her back to [place]. 09/11/2019 CT head scan yesterday showed no acute changes no sign of stroke. His blood pressure remains slightly high and therefore her Procardia was increased from 30 mg to 60. Other blood pressure medicines include Lopressor 50 mg twice daily and lisinopril 40 mg daily I am going to try to see if patient needs home O2 because on the floor she is requiring 3 to 4 L to maintain her oxygen Physical therapy says patient only walked 20 feet and they recommend [facility] facility. Spoke to the patient's daughter today, Anh, down in [place] and said that patient is medically stable and will be ready to be discharged in the next 48 to 72 hours. Daughter lives on the second floor and the patient would have to ambulate 2 flights of steps to get in and out of her house or apartment. Medically patient may be better served with rehab and short-term [facility] facility 09/12/2019 Temperature 97.9 pulse remains in the 50s which is normal for her Unfortunately her blood pressures continue to be elevated today I have added Catapres to her regimen. We will hold the Toprol and Cardizem based on her pulse being less than 60. Patient will require oxygen when she is discharged from the hospital as her sats were the 88 just at rest WBCs remain normal 7000 H&H is stable Sodium 137 potassium 4.3 BUN of 39 creatinine 1.2 Patient need to continue to have her blood pressures monitored and possibly increasing her Catapres Patient will continue to need oxygen on a as needed basis. I am going to get a 2 view chest x-ray today for follow-up from previous film demonstrated a right lower lobe infiltrate - Time Time Spent with patient: 25-34 minutes
--- NOTE | 2019-09-12 13:44 | RADIOLOGY REPORT (SQ) ---
EXAM DESCRIPTION: CHEST 2 VIEWS IMAGES COMPLETED DATE/TIME: 09/12/2019 1:04 pm REASON FOR STUDY: Follow-up for right lower lobe infiltrate COMPARISON: 09/08/2019. EXAM PARAMETERS: NUMBER OF VIEWS: two views TECHNIQUE: Digital Frontal and Lateral radiographic views of the chest acquired. RADIATION DOSE: NA LIMITATIONS: none FINDINGS: LUNGS AND PLEURA: Improved aeration in the lung bases. Bilateral pleural effusions. MEDIASTINUM AND HILAR STRUCTURES: No masses or contour abnormalities. HEART AND VASCULAR STRUCTURES: Mild cardiomegaly. Vascular congestion. BONES: No acute findings. HARDWARE: None in the chest. OTHER: No other significant finding. IMPRESSION: MILD CARDIOMEGALY WITH VASCULAR CONGESTION AND BILATERAL PLEURAL EFFUSIONS. IMPROVED AE RATION WITH CLEARING OF THE BASILAR AIRSPACE DISEASE. TECHNICAL DOCUMENTATION: JOB ID: [id number] 2010 [employer]- All Rights Reserved Reading location - IP/workstation name: [email or web address]
[2019-09-12] MEDS: QUETIAPINE FUMARATE 100 MG TABLET PO SCH (21:24)
[2019-09-13] MEDS: IPRATROPIUM/ALBUTEROL 0.5-2.5 MG/3 ML AMPUL NEB SCH ×2 (02:01→08:58)
[2019-09-13] MEDS: CLONIDINE HCL 0.1 MG TABLET PO SCH (06:17)
[2019-09-13] MEDS: HEPARIN SOD (PORCINE) 5,000 UNIT/ML 1 ML VIAL SUBCUT SCH (06:17)
[2019-09-13] MEDS: HYDRALAZINE HCL INJ/PF 20 MG/1 ML SDV IV PRN (08:39)
[2019-09-13] MEDS: METOPROLOL TARTRATE 50 MG TABLET PO SCH (09:04)
[2019-09-13] MEDS: LISINOPRIL 10 MG TABLET PO SCH (09:08)
[2019-09-13] MEDS: NITROGLYCERIN 5 MG (0.2 MG/HR) PATCH.TD24 TD SCH (09:08)
[2019-09-13] MEDS: NIFEDIPINE 30 MG TAB.ER.24 PO SCH (09:08)
[2019-09-13] MEDS: PREDNISONE 20 MG TABLET PO SCH (09:08)
[2019-09-13] MEDS: CEFTRIAXONE 1 GM/D5W RTU 1 GM/50 ML RTUPB IV SCH (09:11)
[2019-09-13] MEDS: NYSTATIN TOPICAL POWDER 15 GM TP SCH (09:13)
[2019-09-13 12:37] VITALS: BP 144/49
--- NOTE | 2019-09-13 12:45 | PDOC TRANSFER SUMMARY ---
Impression - Admit/DC Date/PCP Admission Date/Primary Care Provider: 09/02/19 05:38 Discharge Date: 09/13/19 - Discharge Diagnosis (1) CHF (congestive heart failure) Is this a current diagnosis for this admission?: Yes (2) COPD exacerbation Is this a current diagnosis for this admission?: Yes (3) Delirium Is this a current diagnosis for this admission?: Yes (4) Elevated lactic acid level Is this a current diagnosis for this admission?: Yes (5) HTN (hypertension) Is this a current diagnosis for this admission?: Yes (6) UTI (urinary tract infection) Is this a current diagnosis for this admission?: Yes - Assessment Summary: 09/10/2019 Temperature 97.9 pulse 50 blood pressure is elevated 172/75 although earlier today was 158/64 Patient currently on Lopressor 50 mg p.o. every 12 hours, lisinopril 40 mg daily, Procardia 30 mg daily, as well as as needed medicines Oxygen saturation 96 to 98% on between 2 and 4 L nasal cannula Seems to be more awake and alert, very little confusion. I am going to get a CT head scan because she still has a little left-sided facial droop. COVID is negative, blood cultures negative, urine cultures growing Proteus. She is currently on Rocephin. Patient was originally admitted for COPD exacerbation and confusion. According to nursing patient's daughter who lives in [place] would like to come up when the patient is discharge pick her up from the hospital and take her back to [place]. 09/11/2019 CT head scan yesterday showed no acute changes no sign of stroke. His blood pressure remains slightly high and therefore her Procardia was increased from 30 mg to 60. Other blood pressure medicines include Lopressor 50 mg twice daily and lisinopril 40 mg daily I am going to try to see if patient needs home O2 because on the floor she is requiring 3 to 4 L to maintain her oxygen Physical therapy says patient only walked 20 feet and they recommend correction facility. Spoke to the patient's daughter today, Anh, down in [place] and said that patient is medically stable and will be ready to be discharged in the next 48 to 72 hours. Daughter lives on the second floor and the patient would have to ambulate 2 flights of steps to get in and out of her house or apartment. Medically patient may be better served with rehab and short-term correction facility 09/12/2019 Temperature 97.9 pulse remains in the 50s which is normal for her Unfortunately her blood pressures continue to be elevated today I have added Catapres to her regimen. We will hold the Toprol and Cardizem based on her pulse being less than 60. Patient will require oxygen when she is discharged from the hospital as her sats were the 88 just at rest WBCs remain normal 7000 H&H is stable Sodium 137 potassium 4.3 BUN of 39 creatinine 1.2 Patient need to continue to have her blood pressures monitored and possibly increasing her Catapres Patient will continue to need oxygen on a as needed basis. I am going to get a 2 view chest x-ray today for follow-up from previous film demonstrated a right lower lobe infiltrate 09/13/2019 Patient is medically stable for discharge. Patient was admitted on 09/02/2019 with acute respiratory failure due to hypercapnia and hypoxia. Patient was admitted to the ICU she was intubated when she presented to the ER. Was felt this was on the basis of an asthma exacerbation. Chest x-ray on admission showed mild patchy perihilar airspace disease with volume loss in the right lung base secondary to vascular congestion and pleural effusion. Also possibly due to pneumonia. Repeat chest x-ray 2 days later showed a ill-defined increased density in the right mid to lower lung . This was increased from previous x-ray and represented probable pneumonia. Patient was transferred out of the ICU on 09/06. Patient diagnosis once transferred out of the ICU appears to have been aspiration pneumonitis. He was intubated on 09/02/2019 and then extubated on 09/02 and then reintubated on 09/03 and finally successfully extubated on 09/05. Patient did have an apparent left facial droop however CT scan did not reveal any signs of stroke. Patient's mental status slowly improved daily. 09/10/2019 she was still only slightly confused. However beginning 09/11/2019 patient is alert awake oriented with no signs of confusion. Patient is working daily with physical therapy. Patient was being treated for a tract infection Rocephin. She had a complete 6- day course of this medicine. Patient's blood pressures have been elevated however she appears to be on the right combination of medications today. Patient has continued to need supplemental oxygen at 2 L to maintain her saturation. Patient will need this as an outpatient once she is discharged. Patient had a chest x-ray on 432 views that showed mild cardiomegaly and vascular congestion with bilateral pleural effusions however also improved variation with clearing of the basilar airspace disease. This is probably patient's baseline for her chest x-ray, clinically she has no indication of CHF. Final diagnosis is 1 history of CHF 2 COPD exacerbation 3 delirium 4 elevated lactic acid level 5 hypertension and 6 UTI - Additional Information Resuscitation Status: Full Code Discharge Diet: Cardiac Discharge Activity: Activity As Tolerated, Balance Activity w/Rest, Weigh Daily Referrals: follow-up, out of town [Other] Prescriptions: Prednisone [Deltasone 20 mg Tablet] 20 mg PO DAILY 28 Days #30 tablet Home Medications: Clonidine HCl [Catapres 0.1 mg Tablet] 0.1 mg PO Q8 #0 tablet 09/13/19 Lisinopril [Prinivil 10 mg Tablet] 40 mg PO DAILY tablet 09/13/19 Metoprolol Tartrate [Lopressor 50 mg Tablet] 50 mg PO Q12 tablet 09/13/19 Nifedipine [Procardia XL 30 mg Tablet] 60 mg PO DAILY tab.er.24 09/13/19 Nitroglycerin [Nitro-Dur 5 mg (0.2 mg/Hr) Transdermal Patch] 1 each TD DAILY patch.td24 09/13/19 Nystatin [Mycostatin Topical Powder 15 gm] 1 applic TP BID bottle 09/13/19 Prednisone [Deltasone 20 mg Tablet] 20 mg PO DAILY 28 Days #30 tablet 09/13/19 Quetiapine Fumarate [Seroquel 100 mg Tablet] 100 mg PO QHS tablet 09/13/19 History of Present Illiness History of Present Illness: SKLYER AGARWAL is a 68 year old female Physical Exam Vital Signs: Temp Pulse Resp BP Pulse Ox 97.3 F 48 L 16 165/52 H 99 09/13/19 07:47 09/13/19 09:00 09/13/19 09:00 09/13/19 07:47 09/13/19 09:00 Intake & Output 09/12/19 09/13/19 09/14/19 06:59 06:59 06:59 Intake Total 1317 800 50 Output Total 680 475 Balance 637 325 50 Weight 85.5 kg 85.5 kg Results Laboratory Results: WBC 7.0 10^3/uL (4.0-10.5) 09/12/19 08:10 RBC 4.01 10^6/uL (3.72-5.28) 09/12/19 08:10 Hgb 10.7 g/dL (12.0-15.5) L 09/12/19 08:10 Hct 32.1 % (36.0-47.0) L 09/12/19 08:10 MCV 80 fl (80-97) 09/12/19 08:10 MCH 26.7 pg (27.0-33.4) L 09/12/19 08:10 MCHC 33.4 g/dL (32.0-36.0) 09/12/19 08:10 RDW 17.5 % (11.5-14.0) H 09/12/19 08:10 Plt Count 153 10^3/uL (150-450) 09/12/19 08:10 Lymph % (Auto) 16.1 % (13-45) 09/12/19 08:10 [place] % (Auto) 7.6 % (3-13) 09/12/19 08:10 Eos % (Auto) 0.8 % (0-6) 09/12/19 08:10 Baso % (Auto) 0.4 % (0-2) 09/12/19 08:10 Absolute Neuts (auto) 5.3 10^3/uL (1.7-8.2) 09/12/19 08:10 Absolute Lymphs (auto) 1.1 10^3/uL (0.5-4.7) 09/12/19 08:10 Absolute Monos (auto) 0.5 10^3/uL (0.1-1.4) 09/12/19 08:10 Absolute Eos (auto) 0.1 10^3/uL (0.0-0.6) 09/12/19 08:10 Absolute Basos (auto) 0.0 10^3/uL (0.0-0.2) 09/12/19 08:10 Total Counted 100 09/06/19 06:15 Seg Neutrophils % 75.1 % (42-78) 09/12/19 08:10 Seg Neuts % (Manual) 94 % (42-78) H 09/06/19 06:15 Lymphocytes % (Manual) 5 % (13-45) L 09/06/19 06:15 Atypical Lymphs % 1 % (0) 09/06/19 06:15 Monocytes % (Manual) 0 % (3-13) L 09/06/19 06:15 Eosinophils % (Manual) 0 % (0-6) 09/06/19 06:15 Basophils % (Manual) 0 % (0-2) 09/06/19 06:15 Abs Neuts (Manual) 9.9 10^3/uL (1.7-8.2) H 09/06/19 06:15 Abs Lymphs (Manual) 0.6 10^3/uL (0.5-4.7) 09/06/19 06:15 Abs Monocytes (Manual) 0.0 10^3/uL (0.1-1.4) L 09/06/19 06:15 Absolute Eos (Manual) 0.0 10^3/uL (0.0-0.6) 09/06/19 06:15 Abs Basophils (Manual) 0.0 10^3/uL (0.0-0.2) 09/06/19 06:15 Platelet Comment ADEQUATE 09/06/19 06:15 Hypochromasia SLIGHT 09/06/19 06:15 Anisocytosis 1+ 09/06/19 06:15 Microcytosis SLIGHT 09/06/19 06:15 PT 14.0 SEC (11.4-15.4) 09/02/19 03:05 INR 1.07 09/02/19 03:05 D-Dimer 1.76 ug/mL (0.00-0.50) H 09/02/19 03:05 Carbonic Acid 1.13 mmol/L (1.05-1.35) 09/08/19 06:00 HCO3/H2CO3 Ratio 19:1 09/08/19 06:00 ABG pH 7.38 (7.35-7.45) 09/08/19 06:00 ABG pCO2 37.5 mmHg (35-45) 09/08/19 06:00 ABG pO2 74.4 mmHg (80-100) L 09/08/19 06:00 ABG HCO3 21.6 mmol/L (20-24) 09/08/19 06:00 ABG Total CO2 22.8 mmol/L (21-25) 09/08/19 06:00 ABG O2 Saturation 94.8 % (94-98) 09/08/19 06:00 ABG Base Excess -3.1 mmol/L 09/08/19 06:00 FiO2 3L 09/08/19 06:00 Sodium 137.8 mmol/L (137-145) 09/12/19 08:10 Potassium 4.3 mmol/L (3.6-5.0) 09/12/19 08:10 Chloride 107 mmol/L (98-107) 09/12/19 08:10 Carbon Dioxide 27 mmol/L (22-30) 09/12/19 08:10 Anion Gap 4 (5-19) L 09/12/19 08:10 BUN 39 mg/dL (7-20) H 09/12/19 08:10 Creatinine 1.20 mg/dL (0.52-1.25) 09/12/19 08:10 Est GFR ( Amer) 54 (>60) L 09/12/19 08:10 Est GFR (MDRD) Non-Af 45 (>60) L 09/12/19 08:10 Glucose 81 mg/dL (75-110) 09/12/19 08:10 POC Glucose 94 mg/dL (70-110) 09/12/19 05:48 Hemoglobin A1c % 6.0 % (4.7-6.0) 09/03/19 03:03 Lactic Acid 2.9 mmol/L (0.7-2.1) H 09/03/19 03:03 Calcium 8.9 mg/dL (8.4-10.2) 09/12/19 08:10 Phosphorus 4.1 mg/dL (2.5-4.5) D 09/03/19 03:03 Magnesium 2.3 mg/dL (1.6-2.3) 09/03/19 03:03 Ferritin 59.70 ng/mL (11.1-264.0) 09/02/19 03:05 Total Bilirubin 0.2 mg/dL (0.2-1.3) 09/02/19 03:05 Direct Bilirubin 0.0 mg/dL (0.0-0.4) 09/02/19 03:05 Neonat Total Bilirubin Not Reportable 09/02/19 03:05 Neonat Direct Bilirubin Not Reportable 09/02/19 03:05 Neonat Indirect Bili Not Reportable 09/02/19 03:05 AST 90 U/L (14-36) H 09/02/19 03:05 ALT 47 U/L (<35) H 09/02/19 03:05 Alkaline Phosphatase 86 U/L (38-126) 09/02/19 03:05 Troponin I 0.032 ng/mL 09/02/19 03:05 C-Reactive Protein 14.2 mg/L (<10.0) H 09/02/19 03:05 NT-Pro-B Natriuret Pep 7040 pg/mL (<125) H 09/08/19 09:17 Total Protein 6.4 g/dL (6.3-8.2) 09/02/19 03:05 Albumin 3.7 g/dL (3.5-5.0) 09/02/19 03:05 Triglycerides 353 mg/dL (<150) H 09/05/19 04:18 Urine Color YELLOW 09/08/19 10:42 Urine Appearance SLIGHTLY-CLOUDY 09/08/19 10:42 Urine pH 9.0 (5.0-9.0) 09/08/19 10:42 Ur Specific Dane 1.016 09/08/19 10:42 Urine Protein 30 mg/dL (NEGATIVE) H 09/08/19 10:42 Urine Glucose (UA) NEGATIVE mg/dL (NEGATIVE) 09/08/19 10:42 Urine Ketones TRACE mg/dL (NEGATIVE) H 09/08/19 10:42 Urine Blood MODERATE (NEGATIVE) H 09/08/19 10:42 Urine Nitrite POSITIVE (NEGATIVE) H 09/02/19 05:08 Urine Nitrite (Reflex) NEGATIVE (NEGATIVE) 09/08/19 10:42 Urine Bilirubin NEGATIVE (NEGATIVE) 09/08/19 10:42 Urine Urobilinogen NEGATIVE mg/dL (<2.0) 09/08/19 10:42 Ur Leukocyte Esterase NEGATIVE (NEGATIVE) 09/02/19 05:08 Leukocyte Esterase Rfl SMALL (NEGATIVE) H 09/08/19 10:42 Urine WBC (Auto) 23 /HPF 09/02/19 05:08 Urine RBC (Auto) 2 /HPF 09/08/19 10:42 Urine Bacteria (Auto) 3+ /HPF 09/08/19 10:42 Urine WBC (Reflex) 4 /HPF 09/08/19 10:42 Squamous Epi Cells Auto 1 /HPF 09/08/19 10:42 Triple Phos Cryst (Auto) MANY /HPF 09/08/19 10:42 Cellular Casts 4 /LPF 09/02/19 05:08 Urine Mucus (Auto) RARE /LPF 09/08/19 10:42 Urine Ascorbic Acid NEGATIVE (NEGATIVE) 09/08/19 10:42 COVID-19 Source Cancelled 09/02/19 05:14 COVID-19 Source NASOPHARYNGEAL 09/02/19 05:14 COVID-19 (ALEXANDRA) Cancelled 09/02/19 05:14 COVID-19 (ALEXANDRA) NOT DETECTED 09/02/19 05:14 Influenza A (Rapid) NEGATIVE (NEGATIVE) 09/02/19 05:14 Influenza B (Rapid) NEGATIVE (NEGATIVE) 09/02/19 05:14 09/02/19 09/02/19 09/08/19 03:05 03:05 09:17 Troponin I 0.032 NT-Pro-B Natriuret Pep 3220 H 7040 H Impressions: Chest X-Ray 09/02/19 03:25 IMPRESSION: 1. Mild patchy perihilar airspace disease with volume loss in the right lung base. Findings may be secondary to vascular congestion and right pleural effusion and/or atelectasis. Underlying pneumonia is not excluded. 2. Mild prominence of the cardiac silhouette. 3. Endotracheal tube and feeding tube present as described above. Chest X-Ray 09/04/19 00:00 IMPRESSION: 1. Probable small right pleural effusion. 2. Slight ill-defined increased density in the right mid to lower lung and within the retrocardiac region on the left. This is slightly increased compared to the prior study and may represent areas of atelectasis or pneumonia. Chest X-Ray 09/08/19 00:00 IMPRESSION: Residual pneumonia or atelectasis right lower lobe. Clinical correlation is needed. Vascular Ultrasound 09/08/19 00:00 IMPRESSION: NO DOPPLER EVIDENCE OF HEMODYNAMICALLY SIGNIFICANT RENAL ARTERY STENOSIS. Head CT 09/10/19 00:00 IMPRESSION: MILD CHRONIC CHANGES OF ATROPHY AND MICROVASCULAR ISCHEMIA. NO ACUTE PROCESS. EVIDENCE OF ACUTE STROKE: NO. Chest X-Ray 09/12/19 00:00 IMPRESSION: MILD CARDIOMEGALY WITH VASCULAR CONGESTION AND BILATERAL PLEURAL EFFUSIONS. IMPROVED AERATION WITH CLEARING OF THE BASILAR AIRSPACE DISEASE. Stroke Is this a Stroke Patient?: No Acute Heart Failure - Is this a Heart Failure Patient?: No
== END 2019-09-13 13:33 | DRG 207 ==
LOC: ER 03:13 → EH 05:38 → ICU 06:48 → 3W 09-07 18:34
PROVIDERS: ADMIT Anesthesiology; ATTEND Physician Assistant
PROC: 5A1955Z Respiratory Ventilation, Greater than 96 Consecutive Hours (ICD-10-PCS; principal; 2019-09-02)
DX: J96.02 Acute respiratory failure with hypercapnia (principal); J69.0 Pneumonitis due to inhalation of food and vomit; I50.31 Acute diastolic (congestive) heart failure; J44.1 Chronic obstructive pulmonary disease with (acute) exacerbation; N39.0 Urinary tract infection, site not specified; E87.2 Acidosis; F19.921 Other psychoactive substance use, unspecified with intoxication with delirium; J96.01 Acute respiratory failure with hypoxia; Z78.1 Physical restraint status; I11.0 Hypertensive heart disease with heart failure; R41.0 Disorientation, unspecified; R74.0 Nonspecific elevation of levels of transaminase and lactic acid dehydrogenase [LDH]; R29.810 Facial weakness; B96.4 Proteus (mirabilis) (morganii) as the cause of diseases classified elsewhere; Z20.818 Contact with and (suspected) exposure to other bacterial communicable diseases; R73.9 Hyperglycemia, unspecified; R94.31 Abnormal electrocardiogram [ECG] [EKG]; I49.3 Ventricular premature depolarization; I16.0 Hypertensive urgency; T38.0X5A Adverse effect of glucocorticoids and synthetic analogues, initial encounter; R31.9 Hematuria, unspecified
CPT/HCPCS: 36415; 36600; 51702; 70450; 71045; 71046; 80048; 80053; 81001; 82728; 82803; 82962; 83036; 83605; 83735; 83880; 84100; 84478; 84484; 85025; 85027; 85379; 85610; 86140; 87040; 87070; 87086; 87088; 87186; 87205; 87635; 87804; 93005; 93010; 93306; 93976; 94002; 94003; 94640; 94667; 94799; 96360; 99291; 99292; J0360; J0696; J1170; J1644; J1815; J1940; J2060; J2704; J2920; J3486; J3490; J7120; J7512; J7620; S0028

== ENCOUNTER 2019-10-07 13:55 | Emergency (ER) | payer MEDICARE, MEDICAID ==
[2019-10-07] MEDS ORDERED: NIFEDIPINE 30 MG TAB.ER.24 PO ONE (14:43)
--- NOTE | 2019-10-07 14:50 | ER Document Report ---
HPI - HPI Patient complains to provider of: med refill Time Seen by Provider: 10/07/19 14:42 Onset: Other Onset/Duration: Gradual Quality of pain: No pain Severity: None Pain Level: Denies Context: 68-year-old female presented to ED for complaint of elevated blood pressure. She states she went to her home health nurse today and her blood pressure was over 200. She states 1 of her medications she has not gotten from [facility] yet. She states she was placed to be on Procardia 60 mg XL and she never got it from the [facility]. We will give her a dose today Associated Symptoms: Other Exacerbated by: Denies Relieved by: Denies - Turnabout elevated blood pressure Similar symptoms previously: Yes Recently seen / treated by doctor: Yes - ROS ROS below otherwise negative: Yes - CONSTITUTIONAL Constitutional: DENIES: Fever, Chills - EENT EENT: DENIES: Sore Throat, Ear Pain, Nasal Drainage-Clear, Nasal Drainage- Purulent, Congestion, Eye problems - NEURO Neurology: DENIES: Headache, Weakness, Vision blurred, Dizzinesss / Vertigo - CARDIOVASCULAR Cardiovascular: DENIES: Chest pain - RESPIRATORY Respiratory: DENIES: Trouble Breathing, Coughing - GASTROINTESTINAL Gastrointestinal: DENIES: Abdominal Pain, Nausea, Patient vomiting, Diarrhea, Constipation, Black / Bloody Stools - URINARY Urinary: DENIES: Dysuria, Urgency, Frequency - REPRODUCTIVE Reproductive: DENIES: :, Postmenopausal, Abnormal bleeding / discharge - MUSCULOSKELETAL Musculoskeletal: DENIES: Extremity pain, Back Pain, Neck Pain, Swelling - DERM Skin Color: Normal Skin Problems: None Past Medical History - General Information source: Patient - Social History Smoking Status: Former Smoker Cigarette use (# per day): No Chew tobacco use (# tins/day): No Smoking Education Provided: No Frequency of alcohol use: None Drug Abuse: None Lives with: Family Family History: Reviewed & Not Pertinent Patient has suicidal ideation: No Patient has homicidal ideation: No - Past Medical History Cardiac Medical History: Reports: Hx Congestive Heart Failure, Hx Hypercholesterolemia, Hx Hypertension Pulmonary Medical History: Reports: Hx Asthma, Hx COPD EENT Medical History: Reports: None Neurological Medical History: Reports: None Endocrine Medical History: Reports: None Renal/ Medical History: Reports: None Malignancy Medical History: Reports: None GI Medical History: Reports: None Musculoskeletal Medical History: Reports Hx Arthritis Skin Medical History: Reports None Traumatic Medical History: Reports: None Infectious Medical History: Reports: None Surgical Hx: Negative Past Surgical History: Reports: None - Immunizations Immunizations up to date: Yes Vertical Provider Document - CONSTITUTIONAL Agree With Documented VS: Yes Exam Limitations: No Limitations General Appearance: WD/WN, No Apparent Distress - INFECTION CONTROL TRAVEL OUTSIDE OF THE [place] IN LAST 30 DAYS: No - HEENT HEENT: Atraumatic, Normal ENT Exam, Normocephalic, PERRLA - NECK Neck: Normal Inspection, Supple, Thyroid Normal - RESPIRATORY Respiratory: Breath Sounds Normal, No Respiratory Distress, Chest Non-Tender - CARDIOVASCULAR Cardiovascular: Regular Rate, Regular Rhythm, No Murmur - GI/ABDOMEN Gastrointestinal: Abdomen Soft, Abdomen Non-Tender, No Organomegaly, Normal Bowel Sounds - REPRODUCTIVE Female Genitalia: Normal Inspection - BACK Back: Normal Inspection - MUSCULOSKELETAL/EXTREMETIES Musculoskeletal/Extremeties: MAEW, FROM, Non-Tender - NEURO Level of Consciousness: Awake, Alert, Appropriate Motor/Sensory: No Motor Deficit, No Sensory Deficit, No Pronator Drift Deep Tendon Reflexes: 3+ - DERM Integumentary: Warm, Dry, No Rash Course - Re-evaluation Re-evalutation: 10/07/19 14:50 She was treated with Procardia in the emergency room and then will be discharged home. Patient states she will get her prescription from [facility] tomorrow for her Procardia and take it as prescribed. - Vital Signs Vital signs: Temp Pulse Resp BP Pulse Ox 97.9 F 55 L 20 214/69 H 96 10/07/19 14:00 10/07/19 14:00 10/07/19 14:00 10/07/19 14:00 10/07/19 14:00 Discharge - Discharge Clinical Impression: Elevated blood pressure reading Condition: Stable Disposition: HOME, SELF-CARE Additional Instructions: HIGH BLOOD PRESSURE REQUIRING TREATMENT: Your blood pressure is high. This is called "hypertension." Today's reading was (normal is less than 140/90). Your history and exam suggest that this is not a temporary problem. You need treatment of your blood pressure. If left untreated, high blood pressure greatly increases your risk of heart attack and stroke. Please don't ignore this problem. If you have blood pressure medicine but aren't using it regularly, start taking it again. Some simple things you can do to help are: Get some aerobic exercise for at least 20 minutes on a daily basis. (See your doctor before beginning any new exercise program.) Eat a low-fat diet. Lose excess weight. Avoid salty foods and avoid adding salt to any of the foods you eat. Avoid diet pills, decongestants, "energizing" herbs, and other medicines that elevate blood pressure. There are many different medicines that treat blood pressure. If your medication causes unpleasant side effects, call your doctor. There are others you can try. Treating hypertension is a life-long investment in your health. CALCIUM CHANNEL BLOCKERS: A medication of the calcium channel vasiliy type has been prescribed for you. Examples of this type of medicine are Calan, Isoptin, Procardia, and Cardizem. These medicines have a variety of uses, including prevention of angina attacks, treatment of blood pressure, regulation of certain heart rhythm problems, and prevention of migraine headaches. Calcium channel blockers work by interfering with the flow of calcium in cell membranes. This results in dilation of blood vessels, and slowing of electrical conduction in the heart. A slight dizziness (due to a fall in blood pressure) may occur with the first dose, and sometimes even with later doses. This may make you prone to dizziness if you stand up suddenly. Call the doctor if lightheadedness is severe, or if you develop palpitations, shortness of breath, or any other new or alarming symptoms. FOLLOW-UP CARE: If you have been referred to a physician for follow-up care, call the physicians office for an appointment as you were instructed or within the next two days. If you experience worsening or a significant change in your symptoms, notify the physician immediately or return to the Emergency Department at any time for re-evaluation.
[2019-10-07 14:56] VITALS: BP 182/76
== END 2019-10-07 15:01 | disposition home or self-care (01) ==
LOC: ER 13:55
DX: I10 Essential (primary) hypertension (principal); J44.9 Chronic obstructive pulmonary disease, unspecified; Z87.891 Personal history of nicotine dependence
CPT/HCPCS: 99283; A9270